=== PATIENT | female | born 1960 | race Caucasian/White ===

== ENCOUNTER 2016-07-28 03:49 | Emergency (ER) | payer SELFPAY ==
--- NOTE | 2016-07-28 04:13 | ED.PDOC ---
History of Present Illness - General Chief Complaint: General Stated Complaint: neuropathy pain Time Seen by Provider: 07/28/16 04:07 Source: patient Exam Limitations: no limitations - History of Present Illness Initial Comments: Ms.Patricia Lawson 56 y/o female with dm2 complicated by neuropthy,SZ,Lumbar disc herniation brought by granddaughter here tonight stating that she had been having stabbing low back pain radiating to back of her legs and pain on both feet for the last one month ran out of medicines since unable to work and disability application still pending.Denies bowel or bladder dysfunction. Timing/Duration: other - one month ago Severity: moderate Improving Factors: nothing Worsening Factors: nothing Associated Symptoms: denies symptoms Allergies/Adverse Reactions: Allergies Guaifenesin [From Entex ER] Allergy (Mild, Verified 10/05/14 12:24) Other itching Methylparaben [From Entex ER] Allergy (Mild, Verified 10/05/14 12:24) Other itching Phenylephrine [From Entex ER] Allergy (Mild, Verified 10/05/14 12:24) Other itching Propylparaben [From Entex ER] Allergy (Mild, Verified 10/05/14 12:24) Other itching Cephalexin [From Keflex] Allergy (Verified 12/10/13 21:34) Home Medications: Ambulatory Orders HYDROcodone 7.5MG/APAP 325MG [[place] 7.5/325] 1 each PO .Q4H PRN #15 tab NS 12/10 Meloxicam [Mobic] 15 mg PO DAILY #15 tab 12/10/13 Clonazepam 1 mg PO BEDTIME 10/05/14 Furosemide [Lasix] 20 mg PO DAILY 10/05/14 Gabapentin 800 mg PO BID 10/05/14 Insulin Detemir [Levemir] 40 unit SUBCU BEDTIME 10/05/14 Muscle Relaxant 1 each PO PRN PRN 10/05/14 Pioglitazone HCl [Actos] 15 mg PO DAILY 10/05/14 Pravastatin Sodium 40 mg PO BEDTIME 10/05/14 Zolpidem Tartrate [Ambien] 10 mg PO BEDTIME 10/05/14 Acetamin W/Cod #3 Tab [Tylenol #3 Tab] 1 ea PO Q6H PRN #12 tab 02/25/15 levoFLOXacin [Levaquin] 500 mg PO DAILY #10 tab 02/25/15 Ciprofloxacin [Cipro] 500 mg PO BID #20 tab 07/28/16 Ciprofloxacin-Ciprofloxacin Hc [Ciprofloxacin ER 500 mg] 1 tab PO BID #20 tab Levetiracetam [Keppra] 500 mg PO BEDTIME #30 tab 07/28/16 Lisinopril 20 mg PO DAILY #30 tab 07/28/16 Phenytoin Sodium Extended 300 mg PO BEDTIME #90 cap 07/28/16 Pravastatin Sodium [Pravachol] 20 mg PO BEDTIME #30 tab 07/28/16 Review of Systems - Review of Systems Constitutional: States: no symptoms reported EENTM: States: no symptoms reported Respiratory: States: see HPI Cardiology: States: no symptoms reported Gastrointestinal/Abdominal: States: no symptoms reported Genitourinary: States: no symptoms reported Musculoskeletal: States: see HPI, back pain Skin: States: no symptoms reported Neurological: States: other - neuropathic pain Endocrine: States: no symptoms reported Hematologic/Lymphatic: States: no symptoms reported Past Medical History (General) - Patient Medical History Hx Seizures: Yes Hx Stroke: No Hx Congestive Heart Failure: No Hx Hypertension: Yes Hx Diabetes: Yes Hx MRSA: No Surgical History: cholecystectomy, other - hysterectomy,,cts,hernia repair,knee - Vaccination History Hx Influenza Vaccination: Yes Hx Pneumococcal Vaccination: No - Social History Hx Tobacco Use: No - quit 2011 Hx Depression: Yes - Female History Patient is a Female of Child Bearing Age (10 -59 yrs old): No Patient : No - Triage Comment ED Triage Comment: past two months having neuropathy pain. Been out of all meds bu levamir and metformin Family Medical History - Family History Mother Hx Family Congestive Heart Failure: Yes Hx Family;Other: COPD Physical Exam - Physical Exam General Appearance: Alert, No apparent distress Eye Exam: bilateral normal, bilateral other - no apparent hemoorhage or exudate retina noted on opht.exam Ears, Nose, Throat: hearing grossly normal, normal ENT inspection Neck: non-tender, full range of motion, supple Respiratory: chest non-tender, lungs clear, normal breath sounds, no respiratory distress Cardiovascular/Chest: normal peripheral pulses, regular rate, rhythm, no gallop , no murmur Peripheral Pulses: radial,right: 2+, radial,left: 2+, dorsalis pedis,right: 1+, dorsalis pedis,left: 1+ Gastrointestinal/Abdominal: normal bowel sounds, non tender, soft Back Exam: normal inspection, no CVA tenderness, no vertebral tenderness Extremity: inflammation - left big toe, pedal edema, swelling Neurologic: alert, normal mood/affect, oriented x 3, sensory deficit - both feet , other - negative straight leg raising test DTR: 1+: Patellar, left, Patellar, right Skin Exam: warm/dry Lymphatic: no adenopathy Departure - Departure Clinical Impression: Lumbar radiculopathy, Neuropathy due to type 2 diabetes mellitus, Cellulitis of toe of left foot Time of Disposition: 04:56 Disposition: Discharge to Home or Self Care Condition: Good Departure Forms: ED Discharge - Pt. Copy, Patient Portal Self Enrollment Instructions: DI for Diabetic Neuropathy, Smoking Cessation for Older Adults: It's Not Too Late!, Reasons to Quit Smoking Diet: low fat, low cholesterol, diabetic diet, low salt diet Referrals: Rey Mesa MD [Primary Care Provider] - 1-2 Weeks Prescriptions: Ciprofloxacin [Cipro] 500 mg PO BID #20 tab Ciprofloxacin-Ciprofloxacin Hc [Ciprofloxacin ER 500 mg] 1 tab PO BID #20 tab Levetiracetam [Keppra] 500 mg PO BEDTIME #30 tab Lisinopril 20 mg PO DAILY #30 tab Phenytoin Sodium Extended 300 mg PO BEDTIME #90 cap Pravastatin Sodium [Pravachol] 20 mg PO BEDTIME #30 tab Home Medications: Ambulatory Orders HYDROcodone 7.5MG/APAP 325MG [[place] 7.5/325] 1 each PO .Q4H PRN #15 tab NS 12/10 Meloxicam [Mobic] 15 mg PO DAILY #15 tab 12/10/13 Clonazepam 1 mg PO BEDTIME 10/05/14 Furosemide [Lasix] 20 mg PO DAILY 10/05/14 Gabapentin 800 mg PO BID 10/05/14 Insulin Detemir [Levemir] 40 unit SUBCU BEDTIME 10/05/14 Muscle Relaxant 1 each PO PRN PRN 10/05/14 Pioglitazone HCl [Actos] 15 mg PO DAILY 10/05/14 Pravastatin Sodium 40 mg PO BEDTIME 10/05/14 Zolpidem Tartrate [Ambien] 10 mg PO BEDTIME 10/05/14 Acetamin W/Cod #3 Tab [Tylenol #3 Tab] 1 ea PO Q6H PRN #12 tab 02/25/15 levoFLOXacin [Levaquin] 500 mg PO DAILY #10 tab 02/25/15 Ciprofloxacin [Cipro] 500 mg PO BID #20 tab 07/28/16 Ciprofloxacin-Ciprofloxacin Hc [Ciprofloxacin ER 500 mg] 1 tab PO BID #20 tab Levetiracetam [Keppra] 500 mg PO BEDTIME #30 tab 07/28/16 Lisinopril 20 mg PO DAILY #30 tab 07/28/16 Phenytoin Sodium Extended 300 mg PO BEDTIME #90 cap 07/28/16 Pravastatin Sodium [Pravachol] 20 mg PO BEDTIME #30 tab 07/28/16 Additional Instructions: NEED TO FOLLOW UP WITH PRIMARY MD;RETURN TO EMERGENCY ROOM NEEDED
[2016-07-28] MEDS ORDERED: HYDROCOD/APAP 10/325 (ER DISP) # 3 tablets PO ONE (04:54)
[2016-07-28] MEDS ORDERED: TETANUS,DIPHTHERIA,PERTUSSIS 1 EA SYG IM ONE (04:54)
[2016-07-28] MEDS ORDERED: levoFLOXacin 500 MG TAB PO ONE (04:55)
[2016-07-28 05:25] VITALS: BP 154/78
[2016-07-28 05:26] VITALS: TEMP 97.9; O2SAT 97
== END 2016-07-28 05:27 | disposition home or self-care (01) ==
LOC: ER 03:49
DX: M54.16 Radiculopathy, lumbar region (principal); E11.40 Type 2 diabetes mellitus with diabetic neuropathy, unspecified; L03.032 Cellulitis of left toe; I10 Essential (primary) hypertension; Z79.899 Other long term (current) drug therapy; Z88.8 Allergy status to other drugs, medicaments and biological substances; Z87.891 Personal history of nicotine dependence; Z23 Encounter for immunization

== ENCOUNTER → 2016-12-16 | Outpatient (CLI) | payer MEDICAID ==
--- NOTE | 2016-12-16 13:46 | US ---
EXAM DESCRIPTION: Venous,Lower Extremity LT CLINICAL HISTORY: 56 years, Female, OTHER SPECIFIED SOFT TISSUE DISORDER COMPARISON: FINDINGS: The left common femoral, superficial femoral, deep femoral, popliteal, posterior tibial and peroneal veins identified. Appropriate flow compressibility and augmentation. IMPRESSION: No evidence deep venous thrombosis left lower extremity. Electronically signed by: Paramjit Bentley MD 12/16/2016 1:44 PM CDT
== END | disposition home or self-care (01) ==
LOC: US 10:36
PROVIDERS: ATTEND Family Medicine
DX: M79.89 Other specified soft tissue disorders (principal)

== ENCOUNTER → 2016-12-16 | Outpatient (CLI) | payer MEDICAID | END | disposition home or self-care (01) | LOC: GMAH 14:16 | PROVIDERS: ATTEND Family Medicine | DX: L03.119 Cellulitis of unspecified part of limb (principal) ==

== ENCOUNTER 2016-12-18 18:30 | Emergency (ER) | payer MEDICAID ==
[2016-12-18 18:47] VITALS: TEMP 97.9; O2SAT 96
--- NOTE | 2016-12-18 18:48 | ED.PDOC ---
History of Present Illness - General Chief Complaint: Skin/Abrasion/Tear Stated Complaint: diabetic wound Time Seen by Provider: 12/18/16 18:38 Source: patient Exam Limitations: no limitations - History of Present Illness Initial Comments: Krupa Lawson 56 y/o female stated that had pain ,swelling ,redness on left big toe for the last 4 days.Had diabetic toe ulcer that had been drained several months ago. Timing/Duration: other - 4 days Severity: moderate Location: extremities - left big toe Improving Factors: rest Worsening Factors: movement Associated Symptoms: other - callus formation Allergies/Adverse Reactions: Allergies Guaifenesin [From Entex ER] Allergy (Mild, Verified 12/18/16 18:47) Other itching Methylparaben [From Entex ER] Allergy (Mild, Verified 12/18/16 18:47) Other itching Phenylephrine [From Entex ER] Allergy (Mild, Verified 12/18/16 18:47) Other itching Propylparaben [From Entex ER] Allergy (Mild, Verified 12/18/16 18:47) Other itching Home Medications: Ambulatory Orders HYDROcodone 7.5MG/APAP 325MG [[place] 7.5/325] 1 each PO .Q4H PRN #15 tab NS 12/10 Meloxicam [Mobic] 15 mg PO DAILY #15 tab 12/10/13 Clonazepam 1 mg PO BEDTIME 10/05/14 Furosemide [Lasix] 20 mg PO DAILY 10/05/14 Gabapentin 800 mg PO BID 10/05/14 Insulin Detemir [Levemir] 40 unit SUBCU BEDTIME 10/05/14 Muscle Relaxant 1 each PO PRN PRN 10/05/14 Pioglitazone HCl [Actos] 15 mg PO DAILY 10/05/14 Pravastatin Sodium 40 mg PO BEDTIME 10/05/14 Zolpidem Tartrate [Ambien] 10 mg PO BEDTIME 10/05/14 Acetamin W/Cod #3 Tab [Tylenol #3 Tab] 1 ea PO Q6H PRN #12 tab 02/25/15 levoFLOXacin [Levaquin] 500 mg PO DAILY #10 tab 02/25/15 Ciprofloxacin [Cipro] 500 mg PO BID #20 tab 07/28/16 Ciprofloxacin-Ciprofloxacin Hc [Ciprofloxacin ER 500 mg] 1 tab PO BID #20 tab Levetiracetam [Keppra] 500 mg PO BEDTIME #30 tab 07/28/16 Lisinopril 20 mg PO DAILY #30 tab 07/28/16 Phenytoin Sodium Extended 300 mg PO BEDTIME #90 cap 07/28/16 Pravastatin Sodium [Pravachol] 20 mg PO BEDTIME #30 tab 07/28/16 Tramadol HCl [Tramadol HCl ER] 100 mg PO TID #20 cap 12/18/16 levoFLOXacin [Levaquin] 500 mg PO QD #10 tab 12/18/16 Review of Systems - Review of Systems Constitutional: States: no symptoms reported EENTM: States: no symptoms reported Respiratory: States: no symptoms reported Cardiology: States: no symptoms reported Genitourinary: States: no symptoms reported Musculoskeletal: States: no symptoms reported Skin: States: see HPI Neurological: States: other - diabetic neuropathy foot Past Medical History (General) - Patient Medical History Hx Seizures: Yes Hx Stroke: No Hx Congestive Heart Failure: No Hx Hypertension: Yes Hx Diabetes: Yes Hx MRSA: No Surgical History: cholecystectomy, other - hysterectomy,cts,knee, - Vaccination History Hx Influenza Vaccination: Yes Hx Pneumococcal Vaccination: Yes - Social History Hx Tobacco Use: No - quit 2011 Hx Depression: Yes - Activities of Daily Living Hospice Agency (if applicable):: None - Female History Patient : No Family Medical History - Family History Mother Hx Family Congestive Heart Failure: Yes Hx Family;Other: COPD Physical Exam - Physical Exam General Appearance: Alert, Comfortable, No apparent distress Eyes, Ears, Nose, Throat Exam: normal ENT inspection Neck: supple Cardiovascular/Chest: normal peripheral pulses, regular rate, rhythm, no murmur Respiratory: lungs clear, normal breath sounds Gastrointestinal/Abdominal: non tender, soft Back Exam: normal inspection Extremity: normal range of motion, non-tender, no calf tenderness, other - tender/redness/swelling left big toe Skin Exam: warm/dry Lymphatic: no adenopathy Progress - Progress Progress: 12/18/16 19:48 Vital Signs - 8 hr 12/18/16 18:38 Temperature 97.9 F Pulse Rate [ 87 pulse ox] Respiratory 18 Rate Blood Pressure 160/95 [Left Arm] O2 Sat by Pulse 96 Oximetry - Results/Orders Results/Orders: Laboratory Tests 12/18/16 12/18/16 19:00 19:00 WBC 10.0 RBC 4.95 Hgb 13.6 Hct 40.7 MCV 82.2 MCH 27.5 MCHC 33.5 RDW 13.3 Plt Count 204 MPV 9.0 Absolute Neuts (auto) 5.60 Absolute Lymphs (auto) 3.40 Absolute Monos (auto) 0.40 Absolute Eos (auto) 0.50 H Absolute Basos (auto) 0.10 Neutrophils % 55.9 Lymphocytes % 33.8 Monocytes % 4.3 Eosinophils % 4.6 Basophils % 1.4 Sodium 134 L Potassium 3.9 Chloride 98 L Carbon Dioxide 26 Anion Gap 13.9 BUN 10 Creatinine 0.53 L BUN/Creatinine Ratio 18.9 Random Glucose 349 H Serum Osmolality 281.2 Calcium 9.4 Total Bilirubin 0.5 AST 21 ALT 21 Alkaline Phosphatase 97 Serum Total Protein 7.4 Albumin 3.9 Globulin 3.5 Albumin/Globulin Ratio 1.1 - EKG/XRAY/CT XRAY: no bony abnormality left big toe,soft tissue swelling Departure - Departure Clinical Impression: Cellulitis of toe of left foot Time of Disposition: 19:50 Disposition: Discharge to Home or Self Care Condition: Fair Departure Forms: ED Discharge - Pt. Copy, Patient Portal Self Enrollment Instructions: DI for Abrasion, DI for Cellulitis -- Adult, Cellulitis Referrals: Rey Mesa MD [Primary Care Provider] - 1-2 Weeks Prescriptions: levoFLOXacin [Levaquin] 500 mg PO QD #10 tab Tramadol HCl [Tramadol HCl ER] 100 mg PO TID #20 cap Home Medications: Ambulatory Orders HYDROcodone 7.5MG/APAP 325MG [[place] 7.5/325] 1 each PO .Q4H PRN #15 tab NS 12/10 Meloxicam [Mobic] 15 mg PO DAILY #15 tab 12/10/13 Clonazepam 1 mg PO BEDTIME 10/05/14 Furosemide [Lasix] 20 mg PO DAILY 10/05/14 Gabapentin 800 mg PO BID 10/05/14 Insulin Detemir [Levemir] 40 unit SUBCU BEDTIME 10/05/14 Muscle Relaxant 1 each PO PRN PRN 10/05/14 Pioglitazone HCl [Actos] 15 mg PO DAILY 10/05/14 Pravastatin Sodium 40 mg PO BEDTIME 10/05/14 Zolpidem Tartrate [Ambien] 10 mg PO BEDTIME 10/05/14 Acetamin W/Cod #3 Tab [Tylenol #3 Tab] 1 ea PO Q6H PRN #12 tab 02/25/15 levoFLOXacin [Levaquin] 500 mg PO DAILY #10 tab 02/25/15 Ciprofloxacin [Cipro] 500 mg PO BID #20 tab 07/28/16 Ciprofloxacin-Ciprofloxacin Hc [Ciprofloxacin ER 500 mg] 1 tab PO BID #20 tab Levetiracetam [Keppra] 500 mg PO BEDTIME #30 tab 07/28/16 Lisinopril 20 mg PO DAILY #30 tab 07/28/16 Phenytoin Sodium Extended 300 mg PO BEDTIME #90 cap 07/28/16 Pravastatin Sodium [Pravachol] 20 mg PO BEDTIME #30 tab 07/28/16 Tramadol HCl [Tramadol HCl ER] 100 mg PO TID #20 cap 12/18/16 levoFLOXacin [Levaquin] 500 mg PO QD #10 tab 12/18/16 Additional Instructions: FOLLOW WITH DRS. DING /SALUD 12/19/2016 patient to call office;Elevate left foot 20 degrees at bedtime;Refrain too much weightbearing left foot
[2016-12-18] MEDS ORDERED: TETANUS,DIPHTHERIA,PERTUSSIS 1 EA SYG IM ONE (18:58)
--- NOTE | 2016-12-18 19:21 | RAD ---
EXAM DESCRIPTION: Foot,Left 3 Views CLINICAL HISTORY: 56 years ,Female pain COMPARISON: None. TECHNIQUE: LEFT foot, Three view FINDINGS: There is soft tissue swelling over the great toe as well as soft tissue swelling over the forefoot. Vascular calcification. Question subcutaneous emphysema or soft tissue defect along the medial aspect of the great toe which could reflect ulceration. Recommend clinical correlation. No underlying bone destruction is noted. No radiopaque foreign object noted. No significant ankle effusion noted. IMPRESSION: Soft tissue swelling over the forefoot and particularly over the great toe with question area of ulceration or laceration along the medial aspect. Recommend clinical correlation No bone destruction noted Electronically signed by: Dolores Gutierres 12/18/2016 7:19 PM CDT
[2016-12-18] MEDS ORDERED: levoFLOXacin 500 MG TAB PO ONE (19:51)
[2016-12-18 20:29] VITALS: BP 168/77
== END 2016-12-18 20:10 | disposition home or self-care (01) ==
LOC: ER 18:30
DX: E11.628 Type 2 diabetes mellitus with other skin complications (principal); L03.032 Cellulitis of left toe; I10 Essential (primary) hypertension; Z23 Encounter for immunization; Z88.8 Allergy status to other drugs, medicaments and biological substances; Z79.899 Other long term (current) drug therapy; Z79.4 Long term (current) use of insulin; Z87.891 Personal history of nicotine dependence

== ENCOUNTER → 2017-01-02 | Outpatient (CLI) | payer MEDICAID ==
--- NOTE | 2017-01-05 11:01 | MRI ---
EXAM DESCRIPTION: MRI left foot CLINICAL HISTORY: Nonhealing wound of the great toe. Entire foot is red and swollen. COMPARISON: Radiograph 12/18/2016 TECHNIQUE: Multiplanar, multisequence MR images of the left foot FINDINGS: Skin thickening with subcutaneous edema great toe. Minimal fluid along the base of the nailbed. No abscess. Marrow edema in the distal phalanx of the great toe consistent with osteomyelitis. No marrow abnormality in the proximal phalanx. No other evidence of osteomyelitis No soft tissue abscess or infectious tenosynovitis. No septic arthritis A well-circumscribed ovoid intermediate signal intensity mass is present beneath the plantar calcaneus/plantar fascia. This measures about 2.2 x 1.7 x 1 cm. Intermediate to low T2 primarily with minimal increased signal. Nonspecific probably represents a chronic adventitial bursa, or possibly epidermal inclusion cyst or foreign body reaction Moderate-sized well-corticated plantar calcaneal spur with marked middle bundle plantar fascial thickening. No acute fascial abnormality No osteochondral lesion of the ankle or hindfoot. No advanced osteoarthritis or neuropathic arthropathy Chronic Achilles tendinosis with distal dorsal calcaneal enthesophyte. No acute abnormality, IMPRESSION: Osteomyelitis distal phalanx great toe. Overlying cellulitis. No soft tissue abscess Electronically signed by: Diogenes Ramesh MD 01/05/2017 11:00 AM CDT
== END ==
LOC: MRI 14:05
PROVIDERS: ATTEND Family Medicine
DX: L97.522 Non-pressure chronic ulcer of other part of left foot with fat layer exposed (principal); M86.172 Other acute osteomyelitis, left ankle and foot; L03.116 Cellulitis of left lower limb; E11.69 Type 2 diabetes mellitus with other specified complication; M79.89 Other specified soft tissue disorders

== ENCOUNTER 2017-01-08 08:00 | Day surgery (SDC) | payer MEDICAID ==
--- NOTE | 2017-01-06 13:07 | RAD ---
EXAM DESCRIPTION: Chest,2 Views CLINICAL HISTORY: pre op COMPARISON: December 10, 2013 FINDINGS: Two-view chest x-ray shows cardiomediastinal silhouette and pulmonary vasculature to be within normal limits. Mild calcifications of the thoracic aortic arch are seen. The lungs are normally aerated and clear. Costophrenic angles are sharp. Moderate disc degenerative changes of the spine are identified. IMPRESSION: No radiographic evidence of acute cardiopulmonary disease. Electronically signed by: Domenic Stapleton MD 01/06/2017 1:06 PM CDT
[~2017-01-08 08:00] MED LIST: LACTATED RINGERS 1,000 ML ONE; LIDOCAINE 1% 10 ML VIAL INJ ONE; PROPOFOL 200 MG/20 ML VIAL IV ONE; SODIUM CHL 0.9% 100ML MINI-BAG 100 ML IVPB ONE; ceFAZolin SODIUM 1 GM VIAL ONE
[2017-01-08] MEDS ORDERED: SODIUM BICARBONATE VIAL 50 MEQ/50 ML VIAL ONE (08:31)
[2017-01-08] MEDS ORDERED: LIDOCAINE 1% 50 ML VIAL INJ ONE (08:31)
--- NOTE | 2017-01-08 11:00 | OP ---
DATE OF PROCEDURE: 01/08/17 PREOPERATIVE DIAGNOSIS: 1. Osteomyelitis, distal phalanx, left great toe, with nonhealing ulceration. POSTOPERATIVE DIAGNOSIS: 1. Osteomyelitis, distal phalanx, left great toe, with nonhealing ulceration. PROCEDURE: 1. Amputation of left great toe through the proximal phalanx. SURGEON: Gio Porras MD. WORKFORCE ADVISOR: None. ANESTHESIA: Local infiltration of 1% lidocaine with bicarb and IV sedation by Anesthesia. INDICATION: The patient is a 56-year-old diabetic who developed an ulceration on the medial aspect of the plantar surface of her left great toe. It had drainage and was treated with antibiotics and improved clinically, but failed to heal. She recently developed some purulent drainage on the medial aspect of her great toenail, which was ingrowing, with surrounding erythema. She underwent removal of the toenail and the drainage at that point improved, however, she continued to have erythema. Dr. Mesa ordered an MRI of her toe and it revealed changes consistent with osteomyelitis in the distal phalanx, and she was brought to the Surgical Suite today for amputation of same. FINDINGS: The amputated distal proximal phalanx looked to be healthy. There was no obvious purulent drainage anywhere within the transected tissue. PROCEDURE: After the patient was brought to the Surgical Suite and received IV Ancef, she was prepped and draped in the usual sterile manner with the left side up mildly with a pillow. Surgical time-out was taken. At this point, an elliptical incision was fashioned to take the nailbed, the erythematous tissue and the ulceration within its margins. It was first made with a marking pen. Infiltration of anesthesia was obtained proximally and then the skin edges were incised with a sharp knife. Skin hooks were used and the tissue was dissected down through the skin into the subcutaneous tissue using electrocautery. We entered the interphalangeal joint and the tissue was transected at that point and the specimen was sent. Using a rongeur, the distal proximal phalange bone was excised until smooth. The wound was then copiously irrigated with saline. The periosteum was then closed with interrupted 3-0 Vicryl sutures and the skin edges were then loosely approximated with 4-0 Nylon vertical mattress sutures. Sterile dressing was applied. The patient tolerated the procedure well. Estimated blood loss was approximately 25 to 50 mL. All sponge, needle and instrument counts were correct. [facility][id number] [facility]
[2017-01-08 12:15] VITALS: O2SAT 99
[2017-01-08 12:16] VITALS: BP 136/78; TEMP 97.2
== END 2017-01-08 11:25 | disposition home or self-care (01) ==
LOC: AMB 08:00
PROVIDERS: ATTEND Surgery
DX: M86.8X7 Other osteomyelitis, ankle and foot (principal); G40.909 Epilepsy, unspecified, not intractable, without status epilepticus; E11.9 Type 2 diabetes mellitus without complications; G89.4 Chronic pain syndrome; F41.8 Other specified anxiety disorders; Z88.8 Allergy status to other drugs, medicaments and biological substances; Z87.891 Personal history of nicotine dependence; Z79.84 Long term (current) use of oral hypoglycemic drugs; Z79.899 Other long term (current) drug therapy
CPT/HCPCS: 01480; 28160; 36416; 71020; 80053; 81001; 82948; 85025; 93005; J0690; J3490; J7050; J7120

== ENCOUNTER 2017-04-27 10:04 | Emergency (ER) | payer SELFPAY ==
[2017-04-27 10:29] VITALS: TEMP 99.5
[2017-04-27] MEDS ORDERED: SULFA/TRIMETH 800/160 (DS) TAB 1 EA TAB PO ONE (11:30)
[2017-04-27] MEDS ORDERED: INSULIN LISPRO 100 UNITS/ML PEN SUBCU ONE (11:36)
[2017-04-27] MEDS ORDERED: VANCOMYCIN HCL INJ 2,000 MG in SODIUM CHLORIDE 0.9% 500ML 500 ML IVPB ONE (11:39)
[2017-04-27] MEDS ORDERED: INSULIN, REG.(HUMAN) 100 U/ML VIAL ONE (11:39)
[2017-04-27] MEDS ORDERED: INSULIN, REG.(HUMAN) 100 U/ML VIAL SUBCU ONE (11:42)
[2017-04-27] MEDS ORDERED: VANCOMYCIN HCL INJ 1,000 MG VIAL IVPB ONE (11:44)
[2017-04-27] MEDS ORDERED: SODIUM CHLORIDE 0.9% 500ML 500 ML ONE (11:45)
[2017-04-27] MEDS: CIPROFLOXACIN 500 MG TAB PO ONE ×2 (11:58→11:59)
--- NOTE | 2017-04-27 12:15 | RAD ---
EXAM DESCRIPTION: Foot,Left 2 Views CLINICAL HISTORY: cellulitis bilat, dm COMPARISON: December 18, 2016 IMPRESSION: 2 views of the left foot show interval amputation of the distal phalanx and distal portion of the proximal phalanx of the great toe. No obvious periosteal reaction is seen involving the residual stump. Question soft tissue ulceration or lucency on the medial and lateral aspect of the stump. No acute fracture, focal bone destruction, or joint dislocation in the foot is seen. Moderate vascular calcifications are seen. Mild osteoarthritic changes of the midfoot tarsal bones are seen. Soft tissue swelling of the distal foot is seen. Electronically signed by: Domenic Stapleton MD 04/27/2017 12:14 PM [facility]
--- NOTE | 2017-04-27 12:17 | RAD ---
EXAM DESCRIPTION: Foot,Right 2 Views CLINICAL HISTORY: cellulitis bilat, dm COMPARISON: None. IMPRESSION: 2 views of the right foot shows no evidence of acute fracture, focal bone destruction, or joint dislocation. There is a linear radiopaque foreign body in the soft tissue plantar to the first metatarsal head with tiny radiopaque foreign body more distal and medially. This could represent fragments from a needle. Diffuse soft tissue swelling of the foot is seen. Moderate vascular calcifications are identified. Large plantar enthesophyte of the calcaneus is seen. Electronically signed by: Domenic Stapleton MD 04/27/2017 12:16 PM [facility]
--- NOTE | 2017-04-27 14:36 | ED.PDOC ---
History of Present Illness - General Chief Complaint: Skin/Abrasion/Tear Time Seen by Provider: 04/27/17 10:22 Source: patient Exam Limitations: no limitations - History of Present Illness Initial Comments: -year-old female with diabetes presenting secondary to cellulitis and some swelling in both feet. Swelling has been present for 4-5 days. The patient did pull a foreign body out of the first digit of her's right foot a few days ago. She does have some erythema extending out from the right first toe dorsally. There is no drainage or ashley pus. Additionally the patient does have a very small amount of pus coming from just below the cuticle on the second digit of the left toe. This looks like this probably came from wearing a shoe that was too small. Additionally she does have a callus to the plantar aspect of the first digit of the left foot that has caused a new ulcer to form. No fevers. No nausea vomiting or diarrhea. No evidence of sepsis.she has not been checking her blood pressures or blood sugars frequently Timing/Duration: unsure Severity: moderate Improving Factors: nothing Worsening Factors: nothing Associated Symptoms: denies symptoms Allergies/Adverse Reactions: Allergies Guaifenesin [From [facility]] Allergy (Mild, Verified 12/18/16 18:47) Other itching Methylparaben [From [facility]] Allergy (Mild, Verified 12/18/16 18:47) Other itching Phenylephrine [From [facility]] Allergy (Mild, Verified 12/18/16 18:47) Other itching Propylparaben [From [facility]] Allergy (Mild, Verified 12/18/16 18:47) Other itching Home Medications: Ambulatory Orders Insulin Detemir [Levemir] 50 unit SUBCU BEDTIME 10/05/14 Phenytoin Sodium Extended 300 mg PO BEDTIME #90 cap 07/28/16 Estazolam 1 mg PO BEDTIME 01/06/17 HYDROcodone 10MG/APAP 325MG 1 tablet PO Q4HR PRN 01/06/17 Methocarbamol [Robaxin] 750 mg PO QID 01/06/17 Sertraline HCl 100 mg PO BEDTIME 01/06/17 levoFLOXacin [Levaquin] 500 mg PO QPM 01/06/17 Ciprofloxacin [Cipro] 500 mg PO BID #20 tab 04/27/17 Sulfa/Trimeth 800/160 (Ds) Tab [Bactrim DS Tab] 1 ea PO BID #20 tab 04/27/17 Review of Systems - Review of Systems Constitutional: States: no symptoms reported EENTM: States: no symptoms reported Respiratory: States: no symptoms reported Cardiology: States: no symptoms reported Gastrointestinal/Abdominal: States: no symptoms reported Genitourinary: States: no symptoms reported Musculoskeletal: States: see HPI Skin: States: see HPI Neurological: States: see HPI Endocrine: States: no symptoms reported All other Systems: No Change from Baseline Past Medical History (General) - Patient Medical History Hx Seizures: No Hx Stroke: No Hx Cardiac Disorders: No Hx Congestive Heart Failure: No Hx Hypertension: Yes Hx Diabetes: Yes Hx MRSA: No - Vaccination History Hx Influenza Vaccination: Yes Hx Pneumococcal Vaccination: Yes - Social History Hx Tobacco Use: No - quit 2011 Hx Depression: Yes - Female History Patient : No Family Medical History - Family History Mother Hx Family Congestive Heart Failure: Yes Hx Family;Other: COPD Physical Exam - Physical Exam General Appearance: Alert, Comfortable, No apparent distress Eye Exam: bilateral normal Ears, Nose, Throat: hearing grossly normal, normal ENT inspection, normal pharynx Neck: full range of motion, supple Respiratory: lungs clear, normal breath sounds, no respiratory distress, no accessory muscle use Cardiovascular/Chest: normal peripheral pulses, regular rate, rhythm, no edema Peripheral Pulses: radial,right: 2+, radial,left: 2+, dorsalis pedis,right: 2+, dorsalis pedis,left: 2+ Gastrointestinal/Abdominal: non tender, soft Rectal Exam: deferred Back Exam: no CVA tenderness 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 Progress - Progress Progress: 04/27/17 14:36 the patient is a 57-year-old female presenting to the emergency room secondary to cellulitis present in both feet likely from lesions in the toes. The wounds were cleaned. There was no isolated pus that could be cultured. A blood culture was taken. A scalpel was used to debride the overlying callus on the first digit ulcer on the left foot. The patient was given 1 dose of IV vancomycin here. She will be placed on Bactrim twice daily and ciprofloxacin twice daily for the next 10 days. She needs to follow up with her general surgeon in 3 days for reevaluation. She has been encouraged to photo document her wounds. She can cover the wounds with antibacterial ointment such as Neosporin and a Band-Aid and wash them 2-3 times daily with an antibacterial soap and water. ER warnings were given for any worsening. No evidence of sepsis at this time. - Results/Orders Results/Orders: Laboratory Tests 04/27/17 04/27/17 04/27/17 10:22 10:22 10:22 WBC 11.1 H RBC 4.54 Hgb 12.6 Hct 38.5 MCV 84.9 MCH 27.8 MCHC 32.8 L RDW 13.6 Plt Count 189 MPV 9.7 Absolute Neuts (auto) 8.60 H Absolute Lymphs (auto) 1.60 Absolute Monos (auto) 0.60 Absolute Eos (auto) 0.20 Absolute Basos (auto) 0.10 Neutrophils % 77.2 Lymphocytes % 14.7 L Monocytes % 5.0 Eosinophils % 2.1 Basophils % 1.0 ESR 35 H Sodium 132 L Potassium 4.0 Chloride 96 L Carbon Dioxide 24 Anion Gap 16.0 BUN 12 Creatinine 0.56 L BUN/Creatinine Ratio 21.4 H POC Glucose Random Glucose 523 H* Serum Osmolality 287.1 Calcium 8.9 Total Bilirubin 0.6 AST 14 ALT 15 Alkaline Phosphatase 85 C-Reactive Protein 16.2 H* Serum Total Protein 7.5 Albumin 3.6 Globulin 3.9 H Albumin/Globulin Ratio 0.9 L 04/27/17 14:34 WBC RBC Hgb Hct MCV MCH MCHC RDW Plt Count MPV Absolute Neuts (auto) Absolute Lymphs (auto) Absolute Monos (auto) Absolute Eos (auto) Absolute Basos (auto) Neutrophils % Lymphocytes % Monocytes % Eosinophils % Basophils % ESR Sodium Potassium Chloride Carbon Dioxide Anion Gap BUN Creatinine BUN/Creatinine Ratio POC Glucose 326 H Random Glucose Serum Osmolality Calcium Total Bilirubin AST ALT Alkaline Phosphatase C-Reactive Protein Serum Total Protein Albumin Globulin Albumin/Globulin Ratio Departure - Departure Clinical Impression: Cellulitis of foot, right Diabetic ulcer of foot associated with diabetes mellitus due to underlying condition, limited to breakdown of skin Qualifiers: Diabetic foot ulcer location: toe Laterality: left Qualified Code(s): E08.621 - Diabetes mellitus due to underlying condition with foot ulcer; L97.521 - Non- pressure chronic ulcer of other part of left foot limited to breakdown of skin Disposition: Discharge to Home or Self Care Condition: Fair Departure Forms: ED Discharge - Pt. Copy, Patient Portal Self Enrollment Diet: diabetic diet Activity: increase activity as tolerated Referrals: Rey Mesa MD [Primary Care Provider] - 1-5 Days Prescriptions: Ciprofloxacin [Cipro] 500 mg PO BID #20 tab Sulfa/Trimeth 800/160 (Ds) Tab [Bactrim DS Tab] 1 ea PO BID #20 tab Home Medications: Ambulatory Orders Insulin Detemir [Levemir] 50 unit SUBCU BEDTIME 10/05/14 Phenytoin Sodium Extended 300 mg PO BEDTIME #90 cap 07/28/16 Estazolam 1 mg PO BEDTIME 01/06/17 HYDROcodone 10MG/APAP 325MG 1 tablet PO Q4HR PRN 01/06/17 Methocarbamol [Robaxin] 750 mg PO QID 01/06/17 Sertraline HCl 100 mg PO BEDTIME 01/06/17 levoFLOXacin [Levaquin] 500 mg PO QPM 01/06/17 Ciprofloxacin [Cipro] 500 mg PO BID #20 tab 04/27/17 Sulfa/Trimeth 800/160 (Ds) Tab [Bactrim DS Tab] 1 ea PO BID #20 tab 04/27/17 Additional Instructions: the patient is a 57-year-old female presenting to the emergency room secondary to cellulitis present in both feet likely from lesions in the toes. The wounds were cleaned. There was no isolated pus that could be cultured. A blood culture was taken. A scalpel was used to debride the overlying callus on the first digit ulcer on the left foot. The patient was given 1 dose of IV vancomycin here. She will be placed on Bactrim twice daily and ciprofloxacin twice daily for the next 10 days. She needs to follow up with her general surgeon in 3 days for reevaluation. She has been encouraged to photo document her wounds. She can cover the wounds with antibacterial ointment such as Neosporin and a Band-Aid and wash them 2-3 times daily with an antibacterial soap and water. ER warnings were given for any worsening. No evidence of sepsis at this time. the patient does need to obtain significantly better blood sugar controlin the near future to aid in healing.
[2017-04-27 14:40] VITALS: BP 124/70; O2SAT 98
== END 2017-04-27 14:53 | disposition home or self-care (01) ==
LOC: ER 10:04
DX: E11.621 Type 2 diabetes mellitus with foot ulcer (principal); L97.521 Non-pressure chronic ulcer of other part of left foot limited to breakdown of skin; L03.116 Cellulitis of left lower limb; L03.115 Cellulitis of right lower limb; L84 Corns and callosities; I10 Essential (primary) hypertension; Z79.4 Long term (current) use of insulin
CPT/HCPCS: 36415; 73620; 80053; 82948; 85025; 85651; 86140; 87040; J3370; J7040

== ENCOUNTER → 2017-04-30 | Outpatient (CLI) | payer SELFPAY | END | disposition home or self-care (01) | LOC: LAB.O 15:24 | PROVIDERS: ATTEND Surgery | DX: L02.611 Cutaneous abscess of right foot (principal) ==

== ENCOUNTER 2017-05-01 11:25 | Inpatient (IN) | payer SELFPAY ==
--- NOTE | 2017-05-01 11:38 | HP ---
SUPERVISING PHYSICIAN: Calvin Bird M.D. CHIEF COMPLAINT: Right foot pain. HISTORY OF PRESENT ILLNESS: This is a 57 year-old female patient who was seen in Dr. Porras's office yesterday due to a sore on her right great toe. She had actually been seen in the Emergency Room on the 15 of this month due to the same problem and she was given Levaquin and Cipro at that time. The injury occurred approximately 1 week ago when she broke something on her stove at home. She was in socks and there was some metal on the floor and she stepped in it, and due to her diabetic neuropathy was unable to feel anything in her foot. She initially thought there was something in it, but she cleaned it and put some sort of antibiotic ointment on. The next day when she removed the dressing she thought that any residual metal was gone. The wound progressively worsened which brought her to Dr. Porras's office yesterday. In his office, he opened the wound up and cleaned it out. He sent it for culture and this morning the wound was not any better in spite of her antibiotics, so he called me for direct admission to the hospital for cellulitis of the right great toe. PAST MEDICAL HISTORY: 1. Diabetes mellitus type 2 on insulin therapy. 2. Seizure disorder. 3. Diabetic neuropathy. PAST SURGICAL HISTORY: 1. section. 2. Hysterectomy. 3. Removal of a ganglion cyst. 4. Heel spur removal. 5. Cholecystectomy. 6. Hernia surgery. 7. Left knee surgery. 8. Thumb surgery times 2. 9. Left partial great toe amputation. 10. Tonsillectomy. OUTPATIENT MEDICATIONS: 1. Estazolam. 2. Gabapentin. 3. Hydrocodone. 4. Levemir insulin. 5. Robaxin. 6. Phenytoin. 7. Zoloft. ALLERGIES: NO KNOWN DRUG ALLERGIES. SOCIAL HISTORY: She is disabled. She lives in [place]. She quit smoking approximately 1 year ago and she had a 30 plus pack year smoking history. She drinks alcohol on a social basis. She denies any illicit drug use. REVIEW OF SYSTEMS: Ten point review of systems is negative except as per History of Present Illness. PHYSICAL EXAMINATION: VITAL SIGNS: Temperature 98.3, pulse rate 74, blood pressure 124/70, respiratory rate 16, O2 sat is 97% on room air. GENERAL: This is a 57 year-old female patient who is sitting up in her hospital bed. She is in no acute distress. HEENT: Normocephalic and atraumatic. Pupils are equal and reactive. Oropharynx is clear. Oral mucous membranes are moist. NECK: Supple without mass. There is no discernible jugular venous distention. RESPIRATORY: Clear to auscultation bilaterally. CHEST: There is equal rise and fall of the chest with inspiration and expiration. CARDIOVASCULAR: Regular rate and rhythm. GASTROINTESTINAL: Abdomen is soft, nondistended, non-tender. Bowel sounds are positive. EXTREMITIES: Bilateral pedal pulses are palpable at +2. There is no swelling to the left lower extremity. There is +1 edema to the right lower extremity. The distal portion of the foot is erythematous with some mild edema. There are several lesions on the plantar surface of the right great toe that have wounds with no drainage at this time. There is an area that looks to have been opened recently and presently there is no drainage. There is also an area on the medial aspect of her right great toe that has some fluctuance. It is very tender to palpation. NEUROLOGIC: She is awake, alert and oriented times three. LABORATORY: WBCs are 10.3, hemoglobin 11.8, hematocrit 35.1. ESR is 75. Chemistries show sodium 135, potassium 4.1, chloride 99, BUN 13, creatinine 0.58 , glucose 311, magnesium 1.7. Alkaline phosphatase is 123, C reactive protein 9.9. Urinalysis shows urine glucose of 500 with a trace of lysed urine blood, otherwise is within normal limits. Preliminary wound culture from yesterday shows gram positive cocci. Preliminary blood cultures show no growth. RADIOLOGY: Her foot x-ray per radiology interpretation shows metallic foreign bodies within the plantar aspect of the forefoot. All other labs and films have been reviewed via the EMR. ASSESSMENT: 1. Cellulitis of the right great toe complicated by metal imbedded in the foot. 2. Diabetes mellitus type 2. 3. Seizure disorder. 4. Diabetic neuropathy. PLAN: We will admit the patient to the hospital. I have spoken to Dr. Porras and he has seen the patient. We will make her NPO overnight as he will most likely remove the metal from her foot tomorrow. Initial wound cultures were showing Strep A and I spoke with Dr. Vogt, Infectious Diseases. She recommended that we start Zosyn and after treatment if the cultures show MRSA at that point we could start vancomycin. I have also ordered routine lab for in the morning, sliding scale insulin with a.c. and h.s. blood sugar checks. I have restarted her home medications. I have ordered wound care as well as elevation of her foot. We will continue to monitor closely and followup as needed. Dr. Bird is the collaborating physician available for consultation. #[id number] [facility]
[2017-05-01] MEDS ORDERED: HYDROcodone 5MG/APAP 325MG 1 EA TAB PO PRN (11:45)
[2017-05-01] MEDS ORDERED: PANTOPRAZOLE SODIUM IV 40 MG VIAL IV SCH (12:00)
--- NOTE | 2017-05-01 12:26 | RAD ---
EXAM DESCRIPTION: Foot,Right 3 Views CLINICAL HISTORY: cellulitis COMPARISON: None FINDINGS: 3 views of the right foot. Linear metallic foreign body is present within the plantar aspect of the forefoot soft tissues measuring 0.5 cm in length. This is immediately deep to the head of the first metatarsal and is perpendicular to the long axis of the skin. More medial also within the plantar soft tissues is a small radiopaque foreign body. This foreign body is also linear in appearance measuring 0.25 cm and projects medial to the proximal head of the first digit proximal phalanx. Diffuse soft tissue swelling about the forefoot is consistent with cellulitis. No erosions are seen to suggest a subacute or chronic osteomyelitis. No acute fractures are demonstrated. Plantar and posterior calcaneal enthesophytes are noted without periosteal reaction. Fine vascular calcifications commonly associated with metabolic disease. Impression: Metallic foreign bodies within the plantar aspect of the forefoot described above. Associated cellulitis. Electronically signed by: Zohaib Barrientos MD 05/01/2017 12:25 PM [facility]
[2017-05-01] MEDS: IV SET AND CAP CHANGE INJ INJ SCH (13:32)
[2017-05-01] MEDS: ENOXAPARIN SODIUM 40 MG/0.4 ML SYG SUBCU SCH (13:35)
[2017-05-01] MEDS: SODIUM CHLORIDE 0.9% (FLUSH) 10 ML SYG IV PRN ×2 (13:37→16:56)
[2017-05-01] MEDS ORDERED: DEXTROSE 50% 25 GM/50 ML SYG IV PRN (14:00)
[2017-05-01] MEDS ORDERED: GLUCAGON INJ 1 MG VIAL SUBCU PRN (14:00)
[2017-05-01] MEDS ORDERED: PIPERACILLIN/TAZOBACTAM 3.375 GM VIAL IVPB ONE ×2 (14:12→20:02)
[2017-05-01] MEDS ORDERED: SODIUM CHL 0.9% 50ML MIN-BAG+ 50 ML IVPB ONE (14:13)
[2017-05-01] MEDS: PIPERACILLIN/TAZOBACTAM 3.375 GM in SODIUM CHLORIDE 0.9% 100ML 100 ML IVPB SCH ×2 (14:23→20:29)
[2017-05-01] MEDS ORDERED: MAGNESIUM SULFATE PREMIX 2GM 2 GM in PREMIX BAG 1 BAG IVPB ONE (15:00)
[2017-05-01] MEDS ORDERED: MAGNESIUM SULFATE PREMIX 2GM 50 ML IVPB ONE (15:15)
[2017-05-01] MEDS: GABAPENTIN 400 MG CAP PO SCH ×2 (15:18→20:32)
[2017-05-01] MEDS: HYDROcodone 10MG/APAP 325MG 1 EA TAB PO PRN ×2 (15:18→20:31)
[2017-05-01] MEDS: INSULIN LISPRO 100 UNITS/ML PEN SUBCU SCH ×2 (16:51→21:30)
[2017-05-01] MEDS: METHOCARBAMOL 750 MG TAB PO SCH ×2 (16:55→20:30)
[2017-05-01] MEDS ORDERED: SODIUM CHLORIDE 0.9% 100ML 100 ML IVPB ONE (20:03)
[2017-05-01] MEDS: SODIUM CHLORIDE 0.9% (FLUSH) 10 ML SYG IV SCH (20:28)
[2017-05-01] MEDS: KCL 20 MEQ/NS 1,000 ML IVS PRN (20:28)
[2017-05-01] MEDS: PHENYTOIN SODIUM CAP EXTENDED 100 MG CAP PO SCH (20:30)
[2017-05-01] MEDS: SERTRALINE HCL 50 MG TAB PO SCH (20:32)
[2017-05-01] MEDS ORDERED: ESTAZOLAM 1 MG PO SCH (21:00)
[2017-05-01] MEDS: INSULIN DETEMIR 100 UNITS/ML PEN SUBCU SCH (21:30)
[2017-05-01] MEDS ORDERED: TEMAZEPAM 15 MG CAP ONE (22:47)
[2017-05-01] MEDS: TEMAZEPAM 15 MG CAP PO PRN (22:56)
[2017-05-02] MEDS ORDERED: SODIUM CHLORIDE 0.9% 100ML 100 ML IVPB ONE ×4 (02:17→19:55)
[2017-05-02] MEDS ORDERED: PIPERACILLIN/TAZOBACTAM 3.375 GM VIAL IVPB ONE ×4 (02:17→19:54)
[2017-05-02] MEDS: PIPERACILLIN/TAZOBACTAM 3.375 GM in SODIUM CHLORIDE 0.9% 100ML 100 ML IVPB SCH ×4 (02:29→20:30)
[2017-05-02] MEDS: HYDROcodone 10MG/APAP 325MG 1 EA TAB PO PRN ×4 (03:12→21:14)
[2017-05-02] MEDS: PANTOPRAZOLE SODIUM TAB 40 MG PO SCH (06:47)
[2017-05-02] MEDS: INSULIN LISPRO 100 UNITS/ML PEN SUBCU SCH ×4 (07:26→21:13)
[2017-05-02] MEDS: ENOXAPARIN SODIUM 40 MG/0.4 ML SYG SUBCU SCH (08:10)
[2017-05-02] MEDS: SODIUM CHLORIDE 0.9% (FLUSH) 10 ML SYG IV SCH ×2 (08:10→20:30)
[2017-05-02] MEDS: GABAPENTIN 400 MG CAP PO SCH ×3 (08:10→21:10)
[2017-05-02] MEDS: METHOCARBAMOL 750 MG TAB PO SCH ×4 (08:10→21:13)
[2017-05-02] MEDS: KCL 20 MEQ/NS 1,000 ML IVS PRN ×2 (08:15→21:20)
--- NOTE | 2017-05-02 20:16 | PN ---
DATE: 05/02/17 SUPERVISING PHYSICIAN: Calvin Bird M.D. SUBJECTIVE: The patient is resting in bed with the foot elevated. She says it looks much better than when she came in. She is not having any shortness of breath. She remains afebrile. OBJECTIVE: VITAL SIGNS: temperature 97.8, pulse 69, blood pressure 123/73, respirations 18, satting 97% on room air. I's and O's have not been well monitored but she has adequate input. She has had multiple voids that have been measured. Weight 96.9 kg. CHEST: Lungs are clear to auscultation bilaterally. HEART: Regular rate and rhythm. ABDOMEN: Obese but soft, non- tender. Positive bowel sounds. EXTREMITIES: Right lower extremity has just a trace of edema this morning with some areas of erythema on the distal great toe with some areas of whitish discoloration on the dorsal aspect with some fluctuation. It is tender on palpation. NEUROLOGIC: She is alert and oriented times three. LABORATORY: White count 8,500, hemoglobin 11.0, hematocrit 33.2, platelet count is within normal limits at 219,000. Differential shows to be without a left shift. Chemistries show normal electrolytes. Glucoses have been 162 to 266, calcium 8.4, magnesium 1.9. Urine yesterday showed 500 glucose, trace lysed blood, otherwise within normal limits. MICROBIOLOGY: Blood cultures remain negative after 24 hours. RADIOLOGY: There are no additional radiographic studies. ASSESSMENT: 1. Cellulitis of the right great toe complicated by metal foreign body imbedded into the plantar aspect of the foot showing good response with initiation of antibiotics to include Zosyn. 2. Diabetes mellitus type 2. 3. Seizure disorder. 4. Diabetic neuropathy. PLAN: Will continue to follow the patient along with Dr. Porras as he is managing the wound and surgical intervention as needed. She will be allowed to eat today as we await final cultures results which continue to show possibly Strep A. She will remain on Zosyn with anticipation of discharging once showing to be clinically stable depending on what Dr. Porras has to say and the possibility of having to remove additional foreign bodies. At this point though she shows good response. Will watch and wait to see what she does with antibiotics. Her laboratories have been normal both CBC and chemistries, therefore we will plan not to repeat any labs in the morning. Until discharge, will continue to monitor and treat appropriately. #[id number] [facility]
[2017-05-02] MEDS: PHENYTOIN SODIUM CAP EXTENDED 100 MG CAP PO SCH (21:11)
[2017-05-02] MEDS: INSULIN DETEMIR 100 UNITS/ML PEN SUBCU SCH (21:13)
[2017-05-02] MEDS: SERTRALINE HCL 50 MG TAB PO SCH (21:13)
[2017-05-02] MEDS: TEMAZEPAM 15 MG CAP PO PRN (21:14)
[2017-05-03] MEDS ORDERED: PIPERACILLIN/TAZOBACTAM 3.375 GM VIAL IVPB ONE ×4 (00:22→19:55)
[2017-05-03] MEDS ORDERED: SODIUM CHLORIDE 0.9% 100ML 100 ML IVPB ONE ×4 (00:22→19:56)
[2017-05-03] MEDS: PIPERACILLIN/TAZOBACTAM 3.375 GM in SODIUM CHLORIDE 0.9% 100ML 100 ML IVPB SCH ×4 (02:02→20:20)
[2017-05-03] MEDS: HYDROcodone 10MG/APAP 325MG 1 EA TAB PO PRN ×4 (02:17→22:27)
[2017-05-03] MEDS: PANTOPRAZOLE SODIUM TAB 40 MG PO SCH (06:34)
[2017-05-03] MEDS: INSULIN LISPRO 100 UNITS/ML PEN SUBCU SCH ×4 (07:44→21:25)
[2017-05-03] MEDS ORDERED: CHLORHEXIDINE GLUCONATE 4 % 15 ML UD TOP ONE (08:00)
[2017-05-03] MEDS: KCL 20 MEQ/NS 1,000 ML IVS PRN ×2 (08:03→23:03)
[2017-05-03] MEDS: GABAPENTIN 400 MG CAP PO SCH ×4 (08:09→20:44)
[2017-05-03] MEDS: ENOXAPARIN SODIUM 40 MG/0.4 ML SYG SUBCU SCH (08:09)
[2017-05-03] MEDS: SODIUM CHLORIDE 0.9% (FLUSH) 10 ML SYG IV SCH ×2 (08:10→21:27)
[2017-05-03] MEDS: METHOCARBAMOL 750 MG TAB PO SCH ×4 (08:10→20:44)
[2017-05-03] MEDS: CHLORHEXIDINE GLUC 4% 15ML 45 ML, WATER FOR IRRIGATION 1,000 ML TOP SCH ×2 (13:43)
--- NOTE | 2017-05-03 20:09 | PN ---
DATE: 05/03/17 SUPERVISING PHYSICIAN: Calvin Bird M.D. SUBJECTIVE: The patient is doing well, resting in bed, keeping her foot elevated. She has not had any shortness of breath, chest pains, nausea, vomiting or diarrhea. She is requesting to be able to ambulate as she is tired of being in her room. I discussed the possibility once she is seen in clinic by Dr. Porras. She does remain afebrile. OBJECTIVE: VITAL SIGNS: Temperature 98.5, pulse 73, blood pressure 133/73, respirations 16, satting 97% on room air. I's and O's show a positive balance of 2460 with 3310 in, 850 out. She has had a couple of bowel movements. Weight is 98.1 kg. CHEST: Lungs are clear to auscultation bilaterally. HEART: Regular rate and rhythm. ABDOMEN: Obese but soft, non-tender. Positive bowel sounds. EXTREMITIES: Left extremity shows no cyanosis, clubbing or edema. The right foot shows again erythema but much improved from previous days with now just a trace of edema. The great toe has a blister on the far distal end which has been removed by Dr. Porras with no obvious drainage. There are no other areas of consolidation or fluctuation at this point. He does remain tender to palpation. NEUROLOGIC: She is alert and oriented times three. LABORATORY: No repeated laboratories as her laboratories within the last several days have been within normal limits. Blood sugars were the only labs recorded and they have been ranging from 146 to 244. MICROBIOLOGY: Final culture on the wound of the great toe showed Strep agalactiae Group B which showed resistance to only Clindamycin but sensitive to Levofloxacin, moxifloxacin, Zyvox, Benzylpenicillins and tigecycline. Her blood cultures remain negative after 48 hours. Her first set of blood cultures on the 15 remained negative after 5 days. RADIOLOGY: No additional radiographic studies. ASSESSMENT: 1. Cellulitis of the right great toe complicated by metal foreign body imbedded into the plantar aspect of the foot showing good response with initiation of antibiotics to include Zosyn with final culture results showing Group B Strep. 2. Diabetes mellitus type 2 well controlled on insulin. 3. Seizure disorder. No recent seizure activity. 4. Diabetic neuropathy. PLAN: Will continue to follow the patient as she progresses along with her wound care under the guidance of Dr. Porras. She continues with [facility] wound care management and sterile dressings. She is again encouraged to keep her leg elevated when she is either sitting in a chair or in bed to help prevent any further edema. Hopefully she can be discharged within the next 24 to 48 hours to continue with antibiotics as appropriate such as maybe Augmentin once discharged. Will continue to monitor the patient closely until discharge. [facility][id number] [facility]
[2017-05-03] MEDS: PHENYTOIN SODIUM CAP EXTENDED 100 MG CAP PO SCH (20:44)
[2017-05-03] MEDS: SERTRALINE HCL 50 MG TAB PO SCH (20:44)
[2017-05-03] MEDS: TEMAZEPAM 15 MG CAP PO PRN (20:44)
[2017-05-03] MEDS: INSULIN DETEMIR 100 UNITS/ML PEN SUBCU SCH (21:25)
[2017-05-04] MEDS ORDERED: PIPERACILLIN/TAZOBACTAM 3.375 GM VIAL IVPB ONE ×4 (00:04→20:27)
[2017-05-04] MEDS ORDERED: SODIUM CHLORIDE 0.9% 100ML 100 ML IVPB ONE ×4 (00:04→20:28)
[2017-05-04] MEDS: PIPERACILLIN/TAZOBACTAM 3.375 GM in SODIUM CHLORIDE 0.9% 100ML 100 ML IVPB SCH ×4 (02:19→21:09)
[2017-05-04] MEDS: HYDROcodone 10MG/APAP 325MG 1 EA TAB PO PRN ×3 (05:43→21:13)
[2017-05-04] MEDS: PANTOPRAZOLE SODIUM TAB 40 MG PO SCH (06:24)
[2017-05-04] MEDS: INSULIN LISPRO 100 UNITS/ML PEN SUBCU SCH ×4 (07:56→21:16)
[2017-05-04] MEDS: CHLORHEXIDINE GLUC 4% 15ML 45 ML, WATER FOR IRRIGATION 1,000 ML TOP SCH ×2 (09:27)
[2017-05-04] MEDS: GABAPENTIN 400 MG CAP PO SCH ×3 (09:27→21:14)
[2017-05-04] MEDS: ENOXAPARIN SODIUM 40 MG/0.4 ML SYG SUBCU SCH (09:27)
[2017-05-04] MEDS: METHOCARBAMOL 750 MG TAB PO SCH ×4 (09:27→21:14)
[2017-05-04] MEDS: SODIUM CHLORIDE 0.9% (FLUSH) 10 ML SYG IV SCH ×2 (09:27→21:15)
[2017-05-04] MEDS: KCL 20 MEQ/NS 1,000 ML IVS PRN (11:36)
[2017-05-04] MEDS: IV SET AND CAP CHANGE INJ INJ SCH (13:43)
--- NOTE | 2017-05-04 20:53 | PN ---
DATE: 05/04/17 SUPERVISING PHYSICIAN: Diogenes Cantrell M.D. SUBJECTIVE: The patient continues to do well. Dr. Porras removed some skin and the foot looks good this morning with much less erythema and swelling. She has actually been up at times in a wheelchair but keeps the leg elevated as much as possible. She has remained afebrile. OBJECTIVE: VITAL SIGNS: Temperature 98.2, pulse 73, blood pressure 148/72, respirations 19, satting 96% on room air. I's and O's are well measured as she has had multiple voids that were not collected. She has had 1 bowel movement today. Weight is 97.34 kg. CHEST: Lungs are clear to auscultation. HEART: Regular rate and rhythm. ABDOMEN: Obese but soft, non-tender. Positive bowel sounds. EXTREMITIES: Right foot shows continued erythema but only a trace of edema with the biggest involvement of the great toe with some areas of redness from recent debridement showing good response and healing with no obvious area of loculation. NEUROLOGIC: She is alert and oriented times three. LABORATORY: Her blood sugars have been well controlled between 185 and 228. No additional studies were completed as her last labs are all within fairly normal limits. MICROBIOLOGY: Her blood cultures remain negative at 3 days and the final culture from the clinic did show Group B Strep. RADIOLOGY: There are no additional radiographic studies. ASSESSMENT: 1. Cellulitis of the right great toe possibly complicated by metal foreign body imbedded into the plantar aspect of the foot although showing good response with initiation of antibiotics to include Zosyn with final culture results showing Group B Strep. 2. Diabetes mellitus type 2 well controlled on insulin. 3. Seizure disorder with no recent seizure activity. 4. Diabetic neuropathy. PLAN: Will continue to follow the case along with Dr. Porras in regards to wound management which we will defer to his guidance. She has been up to a shower and continues with [facility] wound management. Will continue to encourage her to elevate her leg when in a sitting or laying position. Hopefully be able to discharge in the next 24 hours. Until then, continue to monitor and treat appropriately. [facility][id number] [facility]
[2017-05-04] MEDS: SERTRALINE HCL 50 MG TAB PO SCH (21:14)
[2017-05-04] MEDS: PHENYTOIN SODIUM CAP EXTENDED 100 MG CAP PO SCH (21:14)
[2017-05-04] MEDS: TEMAZEPAM 15 MG CAP PO PRN (21:14)
[2017-05-04] MEDS: INSULIN DETEMIR 100 UNITS/ML PEN SUBCU SCH (21:16)
[2017-05-05] MEDS: KCL 20 MEQ/NS 1,000 ML IVS PRN (01:07)
[2017-05-05] MEDS ORDERED: PIPERACILLIN/TAZOBACTAM 3.375 GM VIAL IVPB ONE ×4 (01:47→20:08)
[2017-05-05] MEDS ORDERED: SODIUM CHLORIDE 0.9% 100ML 100 ML IVPB ONE ×4 (01:48→20:08)
[2017-05-05] MEDS: HYDROcodone 10MG/APAP 325MG 1 EA TAB PO PRN ×3 (02:22→20:42)
[2017-05-05] MEDS: PIPERACILLIN/TAZOBACTAM 3.375 GM in SODIUM CHLORIDE 0.9% 100ML 100 ML IVPB SCH ×4 (02:22→20:29)
[2017-05-05] MEDS: PANTOPRAZOLE SODIUM TAB 40 MG PO SCH (06:41)
[2017-05-05] MEDS: INSULIN LISPRO 100 UNITS/ML PEN SUBCU SCH ×4 (07:26→21:34)
[2017-05-05] MEDS: METHOCARBAMOL 750 MG TAB PO SCH ×4 (09:05→20:29)
[2017-05-05] MEDS: GABAPENTIN 400 MG CAP PO SCH ×3 (09:05→20:29)
[2017-05-05] MEDS: ENOXAPARIN SODIUM 40 MG/0.4 ML SYG SUBCU SCH (09:06)
[2017-05-05] MEDS: SODIUM CHLORIDE 0.9% (FLUSH) 10 ML SYG IV SCH ×2 (09:06→21:00)
[2017-05-05] MEDS: CHLORHEXIDINE GLUC 4% 15ML 45 ML, WATER FOR IRRIGATION 1,000 ML TOP SCH ×2 (09:08)
[2017-05-05] MEDS ORDERED: FLUCONAZOLE 150 MG TAB PO ONE (09:30)
[2017-05-05] MEDS ORDERED: cloNIDine HCL 0.1 MG TAB PO ONE (10:43)
[2017-05-05] MEDS ORDERED: FUROSEMIDE INJ 20 MG/2 ML VIAL IV ONE (10:43)
[2017-05-05] MEDS ORDERED: ACETAMINOPHEN 325 MG TAB PO PRN (10:44)
[2017-05-05] MEDS: LISINOPRIL 10 MG TAB PO SCH (10:54)
--- NOTE | 2017-05-05 14:20 | US ---
EXAM DESCRIPTION: Venous,Lower Extremity RT: ULTRASOUND. CLINICAL HISTORY: pain swelling of right lower extremity. COMPARISON: Venous deep lower extremity duplex evaluation left leg on this visit. TECHNIQUE: Two -dimensional and doppler sonographic evaluation of the deep venous system of the right lower extremity. FINDINGS: Doppler evaluation shows normal color flow and normal phasicity and augmentation of the right common femoral vein, femoral vein, popliteal vein, greater saphenous vein, peroneal, and posterior tibial vein. The right lower extremity deep veins showed normal occlusion with transducer pressure. Two-dimensional survey showed no echogenic thrombus within these veins. IMPRESSION: 1. Duplex ultrasound evaluation of the right lower extremity deep venous system showing no evidence of thrombosis or embolism. Electronically signed by: Chepe Salmon MD 05/05/2017 2:19 PM [facility]
--- NOTE | 2017-05-05 14:23 | US ---
EXAM DESCRIPTION: Venous,Lower Extremity LT: ULTRASOUND. CLINICAL HISTORY: pain swelling left lower extremity. COMPARISON: Deep venous right lower extremity duplex ultrasound evaluation today. Deep venous left lower extremity duplex ultrasound evaluation 12/16/2016. TECHNIQUE: Two -dimensional and doppler sonographic evaluation of the deep venous system of the left lower extremity. FINDINGS: Doppler evaluation shows normal color flow and normal phasicity and augmentation of the left common femoral vein, deep femoral vein, femoral vein, popliteal vein, lesser saphenous vein, peroneal, and posterior tibial vein. The left lower extremity deep veins showed normal occlusion with transducer pressure. Two-dimensional survey showed no echogenic thrombus within these veins. IMPRESSION: 1. Duplex ultrasound evaluation of the left lower extremity deep venous system showing no evidence of thrombosis or embolism. 2. Stable since prior examination 12/16/2016. Electronically signed by: Chepe Salmon MD 05/05/2017 2:22 PM [facility]
--- NOTE | 2017-05-05 18:57 | PCM.CORE ---
Physician DVT/VTE - Nurse DVT Assessment & Total Each Risk Factor Represents 1 Point: Age 41-60 Each Risk Factor is 1 Point: Obesity (BMI >25) DVT Assessment Score: 2 - 2 Moderate Risk Treatments: Early Ambulation * - 3-4 High Risk Treatments: Early Ambulation *, Sequential Compression Device Pharmacological: Enoxaparin 40 mg SQ Daily
[2017-05-05] MEDS: SERTRALINE HCL 50 MG TAB PO SCH (20:29)
[2017-05-05] MEDS: PHENYTOIN SODIUM CAP EXTENDED 100 MG CAP PO SCH (20:42)
[2017-05-05] MEDS: TEMAZEPAM 15 MG CAP PO PRN (20:42)
[2017-05-05] MEDS: INSULIN DETEMIR 100 UNITS/ML PEN SUBCU SCH (21:35)
[2017-05-05] MEDS: MICONAZOLE NITRATE 2 % 45 GM TUBE VAG SCH (23:26)
[2017-05-06] MEDS ORDERED: PIPERACILLIN/TAZOBACTAM 3.375 GM VIAL IVPB ONE ×3 (02:11→14:12)
[2017-05-06] MEDS ORDERED: SODIUM CHLORIDE 0.9% 100ML 100 ML IVPB ONE ×3 (02:11→14:12)
[2017-05-06] MEDS: PIPERACILLIN/TAZOBACTAM 3.375 GM in SODIUM CHLORIDE 0.9% 100ML 100 ML IVPB SCH ×3 (02:32→14:18)
[2017-05-06] MEDS: PANTOPRAZOLE SODIUM TAB 40 MG PO SCH (06:54)
[2017-05-06] MEDS: INSULIN LISPRO 100 UNITS/ML PEN SUBCU SCH ×4 (07:32→21:02)
--- NOTE | 2017-05-06 08:38 | PN ---
SUPERVISING PHYSICIAN: Diogenes Cantrell MD DATE: 05/05/17 SUBJECTIVE: The patient notes that her foot is feeling better. She just had some swelling in her lower extremities with some discomfort, cramping overnight. We did an ultrasound of the lower extremities and there was no evidence of any DVT and she has been on Lovenox since admission. I discussed with her that she may just be a little bit overloaded on her IV fluids. She has been saline locked and I told her I would give her a dose of Lasix. She remains afebrile. OBJECTIVE: VITAL SIGNS: Temperature 98.2. Pulse 80. Blood pressure initially 198/89, but after Lasix, clonidine and initiation of lisinopril, blood pressure was down to 169/79. Saturation 96% on room air. I&Os with the Lasix today shows she has a negative balance of 2350 with 750 in, 3100 out. She has not had a bowel movement today. Weight 98.8 kg. CHEST: Lungs clear to auscultation. HEART: Regular rate and rhythm. ABDOMEN: Obese, but soft and nontender. Positive bowel sounds. EXTREMITIES: Bilateral trace edema, but the right leg shows improvement from admission with less erythema to the foot. There is still trace of edema and the toe distally is showing a good area of granulation and no obvious fluctuations or drainage. NEUROLOGIC: Alert and oriented times three. LABORATORY: Blood sugars have been well controlled. ESR is actually down a little bit from 75 to 70. Again, her blood pressures have been anywhere from 193 to 228. MICROBIOLOGY: Blood cultures remain negative at 4 days. Her final culture from the clinic that was done prior to admission showed a group B strep that was sensitive to everything but clindamycin including sensitive to Levaquin and penicillin. ASSESSMENT: 1. Cellulitis of the right great toe, questionably complicated by metal foreign body imbedded noted on x-ray into the plantar aspect of the foot, although she continues showing good response with initiation of antibiotic therapy with Zosyn with culture results showing Group B Strep. 2. Mild lower extremity edema with no evidence of deep venous thrombosis on ultrasound studies, attributed to mild fluid excess from IV fluids with the patient now having been saline locked and given a low dose Lasix with good response. 3. Diabetes mellitus, type 2, fairly well controlled on insulin. 4. Seizure disorder with no recent seizure activity. 5. Diabetic neuropathy. PLAN: Again, we did complete an ultrasound this morning and there was no evidence of DVT. She remains on Lovenox. We will continue with Erma with anticipation of hopefully maybe being able to discharge tomorrow. Before discharge, it would be a good idea to touch base with Dr. Vogt and see if she is okay with her going on p.o. medications such as Augmentin or other suggestions. She had a good response to the Lasix. She has been saline locked and continues to have her leg elevated. Hopefully, we will be able to discharge tomorrow. We will continue to follow the patient along with Dr. Porras and continue to defer wound management to him. Until then, we will continue to monitor the patient closely and treat appropriately. #[id number] [facility]
[2017-05-06] MEDS: GABAPENTIN 400 MG CAP PO SCH ×3 (08:53→21:12)
[2017-05-06] MEDS: METHOCARBAMOL 750 MG TAB PO SCH ×4 (08:53→21:11)
[2017-05-06] MEDS: ENOXAPARIN SODIUM 40 MG/0.4 ML SYG SUBCU SCH (08:53)
[2017-05-06] MEDS: LISINOPRIL 10 MG TAB PO SCH (08:54)
[2017-05-06] MEDS: SODIUM CHLORIDE 0.9% (FLUSH) 10 ML SYG IV SCH ×2 (08:54→21:07)
[2017-05-06] MEDS: CHLORHEXIDINE GLUC 4% 15ML 45 ML, WATER FOR IRRIGATION 1,000 ML TOP SCH ×2 (08:58)
[2017-05-06] MEDS: HYDROcodone 10MG/APAP 325MG 1 EA TAB PO PRN ×2 (13:16→21:08)
[2017-05-06] MEDS: AMOXICILLIN & POT CLAVULANATE 875 MG TAB PO SCH (16:51)
[2017-05-06] MEDS ORDERED: TETANUS,DIPHTHERIA,PERTUSSIS 1 EA SYG IM ONE (18:21)
--- NOTE | 2017-05-06 19:20 | PN ---
DATE: 05/06/17 SUPERVISING PHYSICIAN: Diogenes Cantrell M.D. SUBJECTIVE: The patient is sitting up in her chair in her room. She has been ambulating in the ngo. She has no complaints of chest pain, nausea, vomiting, diarrhea or constipation. Does admit that her toe is still swollen but it hurts much less than it has been. OBJECTIVE: VITAL SIGNS: She is afebrile, heart rate 72, blood pressure 147/70, respiratory rate 18, O2 sat is 95% on room air. GENERAL: This is a 57 year-old female who is sitting in her room. She is on no acute distress. RESPIRATORY: Essentially clear to auscultation bilaterally. CARDIAC: Regular rate and rhythm. EXTREMITIES: Her right great toe is covered in a bandage. It is dry and intact. Bilateral pedal pulses are palpable at +2. The right foot is slightly edematous from mid foot extending down to the right great toe. NEUROLOGIC: She is awake, alert and oriented times three. LABORATORY: Blood sugars have run between 129 and 188. There are no other labs or films to report at this time. ASSESSMENT: 1. Cellulitis of the right great toe, questionably complicated by metal foreign body imbedded as noted per x-ray on the plantar aspect of the foot. She has been on Zosyn antibiotics and the culture showing Group B Strep. 2. Mild lower extremity edema with no evidence of deep venous thrombosis on ultrasound studies. 3. Diabetes mellitus, type 2, poorly controlled on insulin therapy with an A1c of 11.2. 4. Seizure disorder with no recent seizure activity. 5. Diabetic neuropathy. PLAN: We will continue present supportive care. I spoke with Dr. Vogt, Infectious Diseases in [employer], and she felt like we could discontinue the Zosyn and start her on Augmentin. We will repeat her ESR in about 1 week. Her admission ESR was 75, it was down to 70 yesterday and that will be ordered, and the results will be called to me. She will followup with Dr. Porras in 2 weeks. I will send her home on Augmentin as well as Align, and her previous medications. If the she tolerates the Augmentin and has no complications on it , we will discharge her home in the morning. Dr. Cantrell is the collaborating physician available for consultation. #[id number] [facility]
[2017-05-06] MEDS: INSULIN DETEMIR 100 UNITS/ML PEN SUBCU SCH (21:02)
[2017-05-06] MEDS: BIFIDOBACTERIUM INFANTIS 4 MG CAP PO SCH (21:09)
[2017-05-06] MEDS: SERTRALINE HCL 50 MG TAB PO SCH (21:09)
[2017-05-06] MEDS: PHENYTOIN SODIUM CAP EXTENDED 100 MG CAP PO SCH (21:09)
[2017-05-06] MEDS: MICONAZOLE NITRATE 2 % 45 GM TUBE VAG SCH (21:09)
[2017-05-07] MEDS: HYDROcodone 10MG/APAP 325MG 1 EA TAB PO PRN (03:39)
[2017-05-07] MEDS: AMOXICILLIN & POT CLAVULANATE 875 MG TAB PO SCH (04:06)
[2017-05-07] MEDS: PANTOPRAZOLE SODIUM TAB 40 MG PO SCH (06:46)
[2017-05-07 07:15] VITALS: TEMP 98.1
[2017-05-07] MEDS: INSULIN LISPRO 100 UNITS/ML PEN SUBCU SCH (08:09)
[2017-05-07] MEDS: GABAPENTIN 400 MG CAP PO SCH (08:53)
[2017-05-07] MEDS: SODIUM CHLORIDE 0.9% (FLUSH) 10 ML SYG IV SCH (08:54)
[2017-05-07] MEDS: ENOXAPARIN SODIUM 40 MG/0.4 ML SYG SUBCU SCH (08:54)
[2017-05-07] MEDS: BIFIDOBACTERIUM INFANTIS 4 MG CAP PO SCH (08:54)
[2017-05-07] MEDS: LISINOPRIL 10 MG TAB PO SCH (08:54)
[2017-05-07] MEDS: METHOCARBAMOL 750 MG TAB PO SCH (08:54)
[2017-05-07] MEDS: CHLORHEXIDINE GLUC 4% 15ML 45 ML, WATER FOR IRRIGATION 1,000 ML TOP SCH ×2 (09:06)
[2017-05-07 11:01] VITALS: BP 133/77; O2SAT 98
--- NOTE | 2017-05-09 20:32 | DS ---
SUPERVISING PHYSICIAN: Diogenes Cantrell M.D. DISCHARGE DIAGNOSIS: 1. Cellulitis of the right great toe questionably complicated by metal foreign body imbedded as noted per x-ray on the plantar aspect of the foot. She has been on Zosyn antibiotics in the hospital recently transitioned to Augmentin. The culture shows positive for Group B Streptococcus. 2. Mild lower extremity edema with no evidence of deep venous thrombosis on ultrasound studies. 3. Diabetes mellitus type 2 poorly controlled on insulin therapy with an A1c of 11.2. 4. Seizure disorder with no recent seizure activity. 5. Diabetic neuropathy. HISTORY OF PRESENT ILLNESS: This is a 57 year-old female patient who was seen in Dr. Porras's office due to a sore on her right foot. She had actually been in the Emergency Room on the of this month due to the same problem and she was given Levaquin and Cipro at that time. The injury occurred approximately 1 week ago when she broke something on her stove at home. She was in socks and there was some metal on the floor and she stepped on it. Due to her diabetic retinopathy, she was unable to feel anything on her foot. She initially thought something was in it, but she cleaned it and put an antibiotic ointment on. The next day when she removed the dressing, she thought that any residual metal was gone. The wound progressively worsened which brought her to Dr. Porras' s office. He opened the wound initially and cleaned it out. He sent it for culture and this morning the wound was not any better in spite of her antibiotic , so she was directly admitted from Dr. Porras's office with cellulitis of the right toe. HOSPITAL COURSE: Initially the patient was placed on Zosyn antibiotic. Dr. Vogt, Infectious Diseases specialist, was contacted and she recommended that we start the Zosyn and if later culture showed MRSA we could then initiate vancomycin. She responded well to her therapy. Dressing changes were done daily. Yesterday, she actually was transitioned off of the Zosyn and placed on Augmentin antibiotic so she could take those as an outpatient. Today, she will be discharged home. DISCHARGE PLAN: The patient will be discharged home in stable condition. She is to do daily dressing changes as instructed by Dr. Porras. She is to continue with her Augmentin and Align. She is to followup with Dr. Porras on 05/19/17 at 3 :30 PM. During her hospital stay her ESR was elevated to 75 on admission and subsequent ESR was 70. She is to come to the hospital on May 13 or May 14 for a followup lab that consists of an ESR. The results will be called to me. Her antibiotic therapy may have to be changed if her sed rate is not improved. Otherwise she is to return to the hospital or followup with Dr. Porras or her primary care physician, Dr. Mesa's office for any other complications or problems. DISCHARGE MEDICATIONS: 1. Levemir. 2. Phenytoin. 3. Hydrocodone. 4. Sertraline. 5. Robaxin. 6. Estazolam. 7. Gabapentin. 8. Augmentin. 9. Align. Dr. Cantrell is the collaborating physician available for consultation. [facility][id number] [facility]
== END 2017-05-07 11:30 | disposition home or self-care (01) | DRG 603 ==
LOC: MS 11:25
PROVIDERS: ADMIT Nurse Practitioner Acute Care; ATTEND Nurse Practitioner Acute Care
PROC: 3E0234Z Introduction of Serum, Toxoid and Vaccine into Muscle, Percutaneous Approach (ICD-10-PCS; principal; 2017-05-06)
DX: L03.031 Cellulitis of right toe (principal); M79.5 Residual foreign body in soft tissue; G40.909 Epilepsy, unspecified, not intractable, without status epilepticus; E11.40 Type 2 diabetes mellitus with diabetic neuropathy, unspecified; B95.1 Streptococcus, group B, as the cause of diseases classified elsewhere; S91.12 Laceration with foreign body of toe without damage to nail; W22.8XXD Striking against or struck by other objects, subsequent encounter; Z23 Encounter for immunization; Z79.4 Long term (current) use of insulin; Z87.891 Personal history of nicotine dependence

== ENCOUNTER → 2017-05-11 | Outpatient (CLI) | payer SELFPAY | LOC: LAB.O 15:14 | PROVIDERS: ATTEND Nurse Practitioner Acute Care | DX: L03.115 Cellulitis of right lower limb (principal) ==

== ENCOUNTER 2019-03-29 02:57 | Inpatient (IN) | payer MEDICARE ==
--- NOTE | 2019-03-29 03:25 | ED.PDOC ---
History of Present Illness - General Chief Complaint: Back Pain or Injury Stated Complaint: Back pain Time Seen by Provider: 03/29/19 02:58 Source: patient - History of Present Illness Initial Comments: 58 yo female with poorly controlled DM2 who is bib EMS from home for cc of falling injury and acute illness. Pt reports just [employer] she was trying to grab a pen on the nightstand by her bed when she accidentally slid down off the bed down onto the ground slowly landing on her knees and tailbone. Reports was unable to stand up even with assistance so EMS called. Pt states she has some mild acute pain to BL knees, R hip, and low back/tailbone from the injury. States low back pain is chronic and largely unchanged, however. Denies any head injuries, neck pain, LOC, or other acute injuries during fall. Pt actually seems more concerned not about her fall but regarding some acute recent illness, which began yesterday AM. Reports sx's of n/v/d. States has had 3 episodes of watery diarrhea as well as a couple episodes of NBNB emesis this evening. Denies any fevers, chills. Reports sore throat, generalized headache. Has had intermittent cough prod for yellow sputum x1 week now. Denies any dyspnea, wheezing. Denies urinary sx's. Pt reports her glucometer has not been working for past couple weeks. She typically takes Novolin before each meal on a sliding scale but states has not taken any insulin for past couple weeks since she hasn't been able to check her glucose level. Previously Rx'd Levemir 50 units nightly but states her PCP (Dr. Bruno Epstein) dc'd this recently and she is now only on the sliding scale. Allergies/Adverse Reactions: Allergies NO KNOWN ALLERGY Allergy (Verified 05/06/17 13:35) Home Medications: Ambulatory Orders RX: Insulin Detemir [Levemir] 50 unit SUBCU BEDTIME 10/05/14 RX: Phenytoin Sodium Extended 300 mg PO BEDTIME #90 cap 07/28/16 HYDROcodone 10MG/APAP 325MG 1 tablet PO Q4HR PRN 01/06/17 RX: Estazolam 1 mg PO BEDTIME 01/06/17 RX: Methocarbamol [Robaxin] 750 mg PO QID 01/06/17 RX: Sertraline HCl 100 mg PO BEDTIME 01/06/17 RX: Gabapentin 800 mg PO TID 05/01/17 RX: Amoxicillin & Pot Clavulanate [Augmentin Tab] 875 mg PO Q12H #20 tab 05/07/17 RX: Bifidobacterium Infantis [Align] 4 mg PO BID cap 05/07/17 Past Medical History (General) - Patient Medical History Hx Seizures: Yes - dilantin Hx Stroke: No Hx Asthma: No Hx Cardiac Disorders: No Hx Congestive Heart Failure: No Hx Pacemaker: No Hx Hypertension: Yes Hx Diabetes: Yes - 2000 Hx MRSA: No - Vaccination History Hx Influenza Vaccination: Yes Hx Pneumococcal Vaccination: Yes - Social History Hx Tobacco Use: No - quit 2011 Hx Alcohol Use: No Hx Substance Use: No Hx Depression: Yes Hx Physical Abuse: No Hx Emotional Abuse: No - Female History Patient : No Family Medical History - Family History Mother Hx Family Congestive Heart Failure: Yes Hx Family;Other: COPD Progress - Progress Progress: 03/29/19 03:00 Fall, acute illness -consider back frx, hip frx, knee frx(s) -for illness, consider gastroenteritis vs colitis vs flu vs strep vs UTI. Consider also electrolyte derangement, hyperglycemia, HHS, other -XR chest, L spine, pelvis, BL knees -pt stable 03/29/19 04:16 -Labs reveal K 6.4, Na 126. Check stat EKG, give Ca gluconate 1 g IV, regular insulin 10 units IV, albuterol nebs 5 mg. Unable to give Lasix given SYBIL and concerned to give Kayexalate given ongoing GI losses and dehydration/SYBIL -hyperkalemia - suspect likely due to acute illness with dehydration and SYBIL. Pt will require admission for further care/tele monitoring. -hyperglycemia - Type 2 diabetic, non-ketone producing, no ketones on UA, anion gap is 11. Will need continued correction with education and reassessment of what her insulin regimen should be 03/29/19 05:19 -CXR shows peribronchial cuffing and some perihilar congestion c/w bronchitis - as pt with fever and productive cough, will begin Abx with Azithromycin 500 mg PO (pt reports allergy to Zosyn). Flu & strep are negative. EKG shows no peaked T waves, largely unremarkable. -XR BL knees, pelvis, & L-spine show no acute fractures -Spoke with Osito Kearney regarding need for admission for hyperkalemia, SYBIL. He states he will need to see if there any available telemetry beds and will call me back. 03/29/19 05:33 -A bed is available and pt has been accepted for admission by Osito Kearney. Alfonso Kelley MD Billing #[id number] - Results/Orders Results/Orders: 03/29/19 02:58 IV Care:Saline Lock per Protoc QSHIFT Telemetry .ONCE Sodium Chloride 0.9% (Flush) [Saline Flush Syringe] 10 ml IV PRN PRN EKG Stat 03/29/19 02:59 EKG Assessment ONCE Pulse Oximetry Assessment DAILY 03/29/19 03:19 STREP A SCREEN CULTURE Stat 03/29/19 04:10 EKG Assessment ONCE 03/29/19 04:15 EKG STAT 03/29/19 05:36 ED Intent to Admit Routine 03/29/19 09:00 Pulse Ox Daily Laboratory Results - last 24 hr 03/29/19 03/29/19 03/29/19 03:00 03:00 03:00 WBC 7.3 RBC 3.84 L Hgb 10.2 L Hct 31.0 L MCV 80.9 L MCH 26.5 L MCHC 32.8 L RDW 14.4 Plt Count 172 MPV 9.6 Absolute Neuts (auto) 6.30 Absolute Lymphs (auto) 0.40 L Absolute Monos (auto) 0.40 Absolute Eos (auto) 0.20 Absolute Basos (auto) 0.00 Neutrophils % 85.9 H Lymphocytes % 6.0 L Monocytes % 5.2 Eosinophils % 2.3 Basophils % 0.6 PT 10.4 INR 1.04 PTT (SP) 28.6 Sodium 126 L Potassium 6.4 H Chloride 92 L Carbon Dioxide 23 Anion Gap 17.4 BUN 39 H Creatinine 1.37 H BUN/Creatinine Ratio 28.5 H POC Glucose Random Glucose 420 H* Serum Osmolality 280.7 Calcium 9.2 Total Bilirubin 0.3 AST 20 ALT 70 H Alkaline Phosphatase 102 Serum Total Protein 7.6 Albumin 3.6 Globulin 4.0 H Albumin/Globulin Ratio 0.9 L Urine Color Urine Appearance Urine pH Ur Specific [place] Urine Protein Urine Glucose (UA) Urine Ketones Urine Blood Urine Nitrite Urine Bilirubin Urine Urobilinogen Ur Leukocyte Esterase Urine RBC Urine WBC Ur Epithelial Cells Other Crystals Urine Bacteria Group A Strep Rapid 03/29/19 03/29/19 03/29/19 03:19 04:08 05:31 WBC RBC Hgb Hct MCV MCH MCHC RDW Plt Count MPV Absolute Neuts (auto) Absolute Lymphs (auto) Absolute Monos (auto) Absolute Eos (auto) Absolute Basos (auto) Neutrophils % Lymphocytes % Monocytes % Eosinophils % Basophils % PT INR PTT (SP) Sodium Potassium Chloride Carbon Dioxide Anion Gap BUN Creatinine BUN/Creatinine Ratio POC Glucose 365 H Random Glucose Serum Osmolality Calcium Total Bilirubin AST ALT Alkaline Phosphatase Serum Total Protein Albumin Globulin Albumin/Globulin Ratio Urine Color Yellow Urine Appearance Clear Urine pH 6.0 Ur Specific [place] 1.015 Urine Protein 100 H Urine Glucose (UA) >=1000 H Urine Ketones Negative Urine Blood Moderate H Urine Nitrite Negative Urine Bilirubin Negative Urine Urobilinogen 0.2 Ur Leukocyte Esterase Negative Urine RBC 10-20 H Urine WBC 0-1 Ur Epithelial Cells 1-3 Other Crystals 1+powder crystals Urine Bacteria Rare Group A Strep Rapid Negative - EKG/XRAY/CT EKG: Sinus - NSR, HR 95, no ST elevations or q waves, axis and intervals normal, appears unchanged from 01/08/17 EKG. Departure - Departure Clinical Impression: Hyperkalemia, Acute kidney injury, Hyperglycemia due to type 2 diabetes mellitus, Acute bronchitis Time of Disposition: 05:36 Disposition: Admit Patient Condition: Fair Home Medications: Ambulatory Orders RX: Insulin Detemir [Levemir] 50 unit SUBCU BEDTIME 10/05/14 RX: Phenytoin Sodium Extended 300 mg PO BEDTIME #90 cap 07/28/16 HYDROcodone 10MG/APAP 325MG 1 tablet PO Q4HR PRN 01/06/17 RX: Estazolam 1 mg PO BEDTIME 01/06/17 RX: Methocarbamol [Robaxin] 750 mg PO QID 01/06/17 RX: Sertraline HCl 100 mg PO BEDTIME 01/06/17 RX: Gabapentin 800 mg PO TID 05/01/17 RX: Amoxicillin & Pot Clavulanate [Augmentin Tab] 875 mg PO Q12H #20 tab 05/07/17 RX: Bifidobacterium Infantis [Align] 4 mg PO BID cap 05/07/17 Decision To Admit - Decistion To Admit Decision to Admit Reason: Admit from ER Decision to Admit Date: 03/29/19 Decision to Admit Time: 05:36
[2019-03-29] MEDS ORDERED: INSULIN, REG.(HUMAN) 100 U/ML VIAL IV ONE (04:10)
[2019-03-29] MEDS ORDERED: CALCIUM GLUCONATE INJ 1 GM/10 ML VIAL IV ONE (04:11)
[2019-03-29] MEDS: ALBUTEROL SULFATE 2.5 MG/3 ML VIAL NEB ONE ×2 (04:41→04:42)
--- NOTE | 2019-03-29 04:51 | RAD ---
EXAM: XR Chest, 1 View CLINICAL HISTORY: The patient is 58 years old and is Female; ground level fall TECHNIQUE: Frontal view of the chest. COMPARISON: Chest radiograph from 01/06/2017 FINDINGS: LUNGS: There is mild peribronchial thickening. No consolidation visualized. PLEURAL SPACE: Unremarkable. No pneumothorax. HEART: Mild enlargement of the cardiac silhouette. MEDIASTINUM: Unremarkable. BONES/JOINTS: Degenerative changes of the spine. No obvious acute fracture. IMPRESSION: Mild peribronchial thickening, which may be related to bronchitis. Electronically signed by: Loretta Fierro MD 03/29/2019 4:50 AM [facility]
--- NOTE | 2019-03-29 04:54 | RAD ---
EXAM: XR Left Knee Complete, 3 views CLINICAL HISTORY: The patient is 58 years old and is Female; s/p falling out of bed, BL knee pain TECHNIQUE: 3 views of the left knee. COMPARISON: Radiographs of the left knee from 06/27/2010 FINDINGS: BONES/JOINTS: Mild diffuse narrowing of the knee joint. Mild tricompartmental osteophytosis. No dislocation. No obvious acute fracture. Small knee joint effusion cannot be excluded on this exam. SOFT TISSUES: No significant soft tissue swelling visualized. VASCULATURE: Atherosclerotic calcifications. IMPRESSION: No obvious acute fracture. Electronically signed by: Loretta Fierro MD 03/29/2019 4:53 AM [facility]
--- NOTE | 2019-03-29 05:01 | RAD ---
EXAM: Knee,Right Complete Right knee three views HISTORY: Falling out of bed, bilateral knee pain COMPARISON: Bilateral knees 06/27/2010 TECHNIQUE: Right knee three views-AP, patellar sunrise, crosstable lateral FINDINGS: No fracture or dislocation. Mild joint space narrowing at medial and lateral femorotibial compartments. Tibial spine hypertrophy. Small osteophytes of right knee. Extensive vascular calcifications throughout visualized right lower extremity. IMPRESSION: Mild right knee DJD. Electronically signed by: Volodymyr Lamb MD 03/29/2019 4:59 AM [facility]
[2019-03-29] MEDS ORDERED: SODIUM CHLORIDE 0.9% 1000ML 1,000 ML IVS ONE ×2 (05:06→08:45)
--- NOTE | 2019-03-29 05:07 | RAD ---
EXAM: Lumbar Spine 3 Views HISTORY: Acute low back pain, falling out of bed COMPARISON: None TECHNIQUE: Lumbar spine three views-lumbar AP, lumbar lateral, lumbosacral lateral FINDINGS: Lumbar vertebral bodies show normal height and alignment. No fracture or subluxation. No significant lumbar disc height loss. Right upper abdominal surgical clips. Vascular calcifications and abdomen and pelvis. IMPRESSION: No evidence of lumbar spine injury. Electronically signed by: Volodymyr Lamb MD 03/29/2019 5:05 AM [facility]
--- NOTE | 2019-03-29 05:11 | RAD ---
EXAM: Pelvis,2 or More Views HISTORY: Falling out of bed, right hip pain COMPARISON: None TECHNIQUE: Pelvis 2 views FINDINGS: No fracture or dislocation. Hip joint spaces unremarkable. Bilateral proximal thigh vascular calcifications. Surgical clips overlie inferior left pelvis. IMPRESSION: No pelvic or hip fracture. Electronically signed by: Volodymyr Lamb MD 03/29/2019 5:09 AM [facility]
[2019-03-29] MEDS ORDERED: AZITHROMYCIN 250 MG TAB PO ONE (05:27)
[2019-03-29] MEDS: SODIUM CHLORIDE 0.9% (FLUSH) 10 ML SYG IV PRN (05:46)
[2019-03-29] MEDS ORDERED: ACETAMINOPHEN 325 MG TAB ONE (05:53)
[2019-03-29] MEDS ORDERED: ACETAMINOPHEN 325 MG TAB PO ONE (05:54)
[2019-03-29] MEDS ORDERED: SODIUM CHLORIDE 0.9% 1000ML 1,000 ML IVS PRN ×2 (07:55→17:21)
[2019-03-29] MEDS ORDERED: GLUCAGON INJ 1 MG VIAL SUBCU PRN (08:09)
[2019-03-29] MEDS ORDERED: DEXTROSE 10% 500ML IVPB PRN (08:09)
[2019-03-29] MEDS ORDERED: ACETAMINOPHEN 325 MG TAB PO PRN (08:12)
[2019-03-29] MEDS ORDERED: SODIUM CHLORIDE 0.9% (FLUSH) 10 ML SYG IV PRN (08:29)
[2019-03-29] MEDS ORDERED: ALUM & MAG HYDROX-SIMETHICONE 30 ML UD PO PRN (08:29)
[2019-03-29] MEDS ORDERED: ALBUTEROL SULFATE 2.5 MG/3 ML VIAL NEB PRN (08:29)
[2019-03-29] MEDS ORDERED: MAGNESIUM HYDROXIDE 30 ML UD PO PRN (08:29)
[2019-03-29] MEDS ORDERED: ONDANSETRON INJ 4 MG/2 ML VIAL IV PRN (08:29)
[2019-03-29] MEDS ORDERED: VANCOMYCIN PER PHARMACY IVPB SCH (08:30)
[2019-03-29] MEDS ORDERED: SODIUM CHL 0.9% 50ML MIN-BAG+ 50 ML IVPB ONE (08:40)
[2019-03-29] MEDS ORDERED: cefTRIAXone SODIUM 1 GM VIAL ONE (08:40)
[2019-03-29] MEDS ORDERED: INSULIN DETEMIR 100 UNITS/ML PEN SUBCU ONE (08:41)
[2019-03-29] MEDS ORDERED: INSULIN LISPRO 100 UNITS/ML PEN SUBCU ONE (08:44)
[2019-03-29] MEDS ORDERED: SODIUM CHLORIDE 0.45% 1000ML 1,000 ML IVS PRN (08:47)
[2019-03-29] MEDS: cefTRIAXone SODIUM 1 GM in SODIUM CHL 0.9% 50ML MIN-BAG+ 50 ML IVPB SCH (09:25)
[2019-03-29] MEDS: OSELTAMIVIR 75 MG CAP PO SCH ×2 (09:26→21:49)
[2019-03-29] MEDS: IV SET AND CAP CHANGE INJ INJ SCH (09:26)
--- NOTE | 2019-03-29 10:30 | HP ---
SUPERVISING PHYSICIAN: Reginaldo Medina MD CHIEF COMPLAINT: Back pain. HISTORY OF PRESENT ILLNESS: Ms. Lawson is a 58-year-old female patient that has a history of poorly controlled diabetes and a chronic foot ulcer infection to the left foot. She was brought to the Emergency Department this morning via EMS after she sustained apparently a fall out of her bed, but noted she was overall not feeling well. She does utilize insulin for treatment of her diabetes. She endorses that just prior to arrival, she was trying to grab a pen on her night stand and actually slid out of bed onto the ground, landing on her tailbone. She reportedly was unable to stand even with the assistance of EMS. After further discussion with her, the patient does endorse that she takes quite a bit of pain medicine at night before she goes to bed. She denied any head injuries, loss of consciousness. She does note she has been having some nausea, vomiting, diarrhea with some more diarrhea over the last several days, but denied any fever or chills. She denied significant headache, sore throat. She does note she is having a little bit of productive cough with some yellow sputum and some mild dyspnea on exertion. She notes in regards to her blood sugars she has not been following those as well as she should because she does not have a glucometer that works. She normally takes Novolin prior to each meal on sliding scale, but notes she has not taken any insulin for the last several days since she has not taken her blood sugar levels and she was having some nausea and vomiting. She has been on Levemir in the past, but has recently been changed just to a sliding scale. Initially in the Emergency Room, her laboratory studies showed she had an elevated blood sugar at 420. Sodium was 126, but corrected 132. She did have an elevated creatinine at 1.37. Anion gap and CO2 were both normal. CBC showed normal white count 7,300, some anemia with 10.2 hemoglobin and hematocrit 31.0 with a microcytic/hypochromic presentation. Differential was without a left shift. Urinalysis showed greater than 1000 of glucose, but negative for ketones. There was note of moderate blood with microscopic hematuria with RBCs 10 to 20, no WBCs, just rare bacteria. Rapid strep screen was negative as well as influenza testing by PCR for A and B. She does note that she does have the diabetic ulcer on her left toe, the left plantar aspect of her foot that she normally has been getting wound management through [facility]. She also endorsed that she is supposed to be on 2 antibiotics, one she thinks is Bactrim and the other she is not sure of, which she had not gotten filled. She has in the past been on IV antibiotics and aggressive wound management. Her vital signs on admission showed she was febrile of 102.4, tachycardic at 105, but a normal blood pressure of 129/73. Saturation 94% on nasal cannula at rest. She had multiple imaging studies completed of both knees, pelvis, lumbar spine with no acute injuries found per radiologic interpretation. Her chest x-ray which was a single view chest showed some mild peribronchial thickening which could represent bronchitis. Given her uncontrollable blood sugars and the fact that she had a hyperkalemia initially with a potassium of 6.4, the patient is going to be admitted for treatment of hyperkalemia, hyperglycemia and uncertain etiology of infectious source. She was placed in observation in stable condition. PAST MEDICAL HISTORY: 1. Diabetes mellitus, type 2, on insulin therapy. 2. Seizure disorder. 3. Diabetic neuropathy. 4. Chronic diabetic ulcer to the left foot under care of wound management in [place], [place]. PAST SURGICAL HISTORY: 1. section. 2. Hysterectomy. 3. Removal of ganglion cyst. 4. Heel spur removal. 5. Cholecystectomy. 6. Hernia surgery. 7. Left knee surgery. 8. Toe surgery times 2. 9. Partial amputation of great toe on the left. 10. Tonsillectomy. HOME MEDICATIONS: 1. Sertraline 100 mg at bedtime. 2. Dilantin extended release 300 mg at bedtime. 3. Levemir 50 units subcutaneously at bedtime. 4. [place] 10/325 1 q.4h. as needed for pain. 5. Gabapentin 800 mg t.i.d. 6. Estazolam 1 mg at bedtime. 7. Align 4 mg b.i.d. ALLERGIES: NO KNOWN DRUG ALLERGIES. FAMILY HISTORY: Noncontributory. SOCIAL HISTORY: The patient is disabled. She lives in [place]. She was a previous smoke approximately 30 packs plus per year and quit about a year ago. She denies any alcohol usage or illicit drugs. REVIEW OF SYSTEMS: CONSTITUTIONAL: Positive for general malaise, fever, chills, reported rigors at home. HEENT: Negative for headaches, sore throats, earaches, nasal congestion, vision changes. RESPIRATORY: Positive for slightly productive cough with some mild shortness of breath on exertion. Denies wheezing. CARDIOVASCULAR: Negative for chest pain, palpitations or syncopal episodes. GASTROINTESTINAL: Positive for chronic constipation issues. Negative for diarrhea or abdominal pain. GENITOURINARY: Negative for dysuria, hematuria, polyuria. MUSCULOSKELETAL: Denies joint swelling, joint arthralgias. NEUROLOGIC: Negative for syncopal episodes, ataxia, seizures or other focal deficits. HEMATOLOGIC: Denies easy bruising or unexplained bleeding or transfusion reactions. PHYSICAL EXAMINATION: VITAL SIGNS: Initially on admission, she was showing a fever of 102.4, pulse 90, blood pressure 135/56, cataract 88% on room air with respirations 22. On nasal cannula, she was showing 94% saturation. With Motrin and Tylenol, temperature was returning to baseline levels initially admission to 99.8. GENERAL: The patient is resting comfortably, appears to be in no acute distress. She is alert. HEENT: Tympanic membranes clear bilaterally. Oropharynx is pink, moist without any lesions. NECK: Supple, nontender with full range of motion. No jugular venous distention noted. RESPIRATORY: Lung sounds fairly coarse throughout, diminished towards the bases with no obvious rhonchi, wheezing or rales. CARDIOVASCULAR: Regular rate and rhythm without any appreciable murmurs, gallops, or rubs. ABDOMEN: Obese, soft, nontender. Positive bowel sounds. EXTREMITIES: There is no cyanosis, clubbing or edema. NEUROLOGIC: Cranial nerves II-XII are grossly intact. Facial features are symmetrical. Extraocular movements are within normal limits. The patient is alert and oriented times three. SKIN: Warm, pink and dry. LABORATORY: CBC showed white count 7,300, hemoglobin 10.2, hematocrit 31.0 with a microcytic/hypochromic presentation on RBC indices with platelet count 172,000. Differential without a left shift. Coagulation studies showed normal PT, PTT. Chemistries initially on admission showed glucose 420 with corrected sodium at 126 up to 132 and potassium 6.4 initially with a normal carbon dioxide and normal anion. BUN 39, creatinine 1.37. Liver functions showed slightly elevated ALT at 70, otherwise total bilirubin and AST were normal. Amylase and lipase were normal at 16 and 27 respectively. Urinalysis showed greater than 1000 glucose, negative ketones, 100 protein with 10 to 20 RBCs, otherwise within normal limits. Rapid group A strep negative. Rapid flu by PCR was negative. Blood cultures pending. RADIOLOGY: She had multiple x-rays including bilateral knees, lumbar spine and pelvis which were without any acute findings. Chest x-ray did show bronchial cuffing consistent with probable bronchitis. Left foot x-ray and abdominopelvic CT were pending. 12-lead EKG on admission showed a sinus rhythm at 95. No ST or T-wave changes. No P-wave changes in comparison to the one on 01/08/17. ASSESSMENT: 1. Electrolyte imbalance to include hyperkalemia, likely due to poorly controlled diabetes with a hyperglycemia. 2. Glucose intolerance with hyperglycemia in a type 2 diabetic patient on insulin therapy with no signs of diabetic ketoacidosis. 3. Sepsis with acute bronchitis, concerning for bilateral pneumonia with additional etiology of infectious source being possible osteomyelitis and cellulitis of the left foot with diabetic ulcer, chronic. 4. Acute kidney injury, likely due to dehydration from poorly controlled diabetes. 5. History of seizure disorder. 6. Chronic diabetic neuropathy from poorly controlled diabetes. PLAN: The patient is going to be admitted for hyperkalemia. She was treated in the Emergency Room with insulin, calcium gluconate and fluids. We will continue with aggressive management with IV fluids and follow her BMPs until her potassium is back to baseline levels. We will utilize Levemir long-acting insulin along with sliding scale additional coverage a.c. and h.s. Given the infection to her left foot, we will start her on vancomycin with additional coverage with Rocephin and azithromycin for concern for possible pneumonia. We will need to touch base with the [facility] to find out where she is at on her treatment course as well as what antibiotics she was recently on or should be on at this point. We will probably need to get a consultation with Dr. Porras. After we get her x-ray back, there is probably going to be concern for osteomyelitis because she has had that in the past and we may need to get an MRI, but this may have already been done in the recent weeks through the [facility]. She will be on DVT prophylaxis per protocol. She will be on insulin sliding scale per protocol. She will be on an 1800 calorie diet. We will follow her labs closely and anticipate to her length of stay to be at least 2 to 3 days. Also given that she had significant fever and we cannot completely rule out the flu, we will put her on Tamiflu given her multiple risk factors. We will provide her fluids, antiemetics and treat her fever as needed. Until the patient can transition to outpatient management, we will continue to monitor and treat as needed. #[id number] MTDD
--- NOTE | 2019-03-29 11:18 | RAD ---
EXAM DESCRIPTION: Left foot, 3 radiographs CLINICAL HISTORY: diabetic ulcer left great toe FINDINGS/ IMPRESSION: Previous amputation of the distal phalanx great toe. Overlying soft tissue swelling and a defect compatible with ulceration. Faint demineralization and irregularity of the distal aspect of the proximal phalanx may be early osteomyelitis. Recommend pre and postcontrast MRI for diagnosis Atherosclerotic vascular calcification. Diffuse soft tissue edema and swelling Electronically signed by: Diogenes Ramesh MD 03/29/2019 11:[address] [facility]
[2019-03-29] MEDS: INSULIN LISPRO 100 UNITS/ML PEN SUBCU SCH ×5 (11:49→21:50)
[2019-03-29] MEDS ORDERED: SODIUM CHLORIDE 0.9% 500ML 500 ML ONE ×2 (11:51→11:52)
[2019-03-29] MEDS ORDERED: VANCOMYCIN HCL INJ 1,000 MG VIAL IVPB ONE ×2 (11:51→11:52)
[2019-03-29] MEDS: VANCOMYCIN HCL INJ 1,750 MG in SODIUM CHLORIDE 0.9% 500ML 500 ML IVPB SCH (12:14)
[2019-03-29] MEDS: IPRATROPIUM/ALBUTEROL 3 ML VIAL INH SCH ×2 (12:58→19:00)
[2019-03-29] MEDS: IBUPROFEN 400 MG TAB PO PRN (17:02)
--- NOTE | 2019-03-29 20:38 | CT ---
PROCEDURE: Abdomen/Pelvis w/o Contrast CLINICAL HISTORY: abdominal pain; fever TECHNIQUE: Contiguous axial images obtained through the abdomen and pelvis without IV contrast. Coronal and sagittal reformatted images were provided. This exam was performed according to our departmental dose-optimization program, which includes automated exposure control, adjustment of the mA and/or kV according to patient size and/or use of iterative reconstruction technique. COMPARISON: 09/20/2013 FINDINGS: Lung bases: Mild interstitial thickening and patchy groundglass opacification. Moderate right and mild left basilar consolidation. Small right and trace left pleural effusions. The heart is mildly enlarged. Coronary artery and mitral annular calcification. Liver: Marked hepatomegaly significant interval change. Gallbladder and biliary system: Prior cholecystectomy. Pancreas: Grossly unremarkable Spleen: Mild splenomegaly without significant interval change. Adrenals: Unremarkable Kidneys: No calculi. No hydronephrosis. Bowel: Mild infiltrative changes surrounding the proximal duodenum. Moderate stool. No obstruction. Appendix: The appendix is not definitively visualized. No findings to suggest acute appendicitis. Urinary bladder: The urinary bladder is distended. Reproductive: Prior hysterectomy. Lymph nodes: No pathologically enlarged lymph nodes. Portal hepatic and portacaval lymph nodes measuring up to without significant interval change. Peritoneum: No focal fluid collection. No free air. Vessels: Mild to moderate atherosclerotic disease. No abdominal aortic aneurysm. Abdominal wall: Midline ventral abdominal wall incisional scar. Small to moderate fat-containing lobulated left lower ventral abdominal wall hernia. Bones: Multilevel spondylosis. No acute fracture. IMPRESSION: 1. Findings which may be related to mild nonspecific duodenitis. Given proximity, consider laboratory correlation for acute pancreatitis. 2. Findings which may in part be related to pulmonary congestion including small right and trace left pleural effusions. Moderate right and mild left basilar consolidation (atelectasis and/or infiltrate). 3. Other findings as above. Electronically signed by: Tabby Weaver MD 03/29/2019 8:36 PM [employer]
[2019-03-29] MEDS ORDERED: OMEPRAZOLE CAP 20 MG CAP ONE (21:24)
[2019-03-30] MEDS: IPRATROPIUM/ALBUTEROL 3 ML VIAL INH SCH ×5 (04:59→20:41)
[2019-03-30] MEDS: OMEPRAZOLE CAP 20 MG CAP PO SCH (05:58)
[2019-03-30] MEDS: INSULIN LISPRO 100 UNITS/ML PEN SUBCU SCH ×7 (07:17→21:06)
[2019-03-30] MEDS ORDERED: SODIUM CHL 0.9% 50ML MIN-BAG+ 50 ML IVPB ONE ×3 (07:24→20:11)
[2019-03-30] MEDS ORDERED: cefTRIAXone SODIUM 1 GM VIAL ONE (07:24)
[2019-03-30] MEDS: OSELTAMIVIR 75 MG CAP PO SCH ×2 (07:38→20:59)
[2019-03-30] MEDS: cefTRIAXone SODIUM 1 GM in SODIUM CHL 0.9% 50ML MIN-BAG+ 50 ML IVPB SCH (07:39)
--- NOTE | 2019-03-30 07:41 | RAD ---
EXAM DESCRIPTION: XR CHEST 2 VIEWS CLINICAL HISTORY: Pneumonia. Fever. Cough COMPARISON: 03/29/2019 TECHNIQUE: PA/lateral FINDINGS: Normal heart size and mediastinal contour. Hilar peribronchial thickening on the right. Previous CT demonstrated right lower lobe consolidation. This contributes to the increased density in the perihilar region on the frontal radiograph and increased density over the lower thoracic spine and the lateral radiograph. Small effusion. No pneumothorax. No acute bony abnormality IMPRESSION: Right lower lobe pneumonia and perihilar bronchial thickening/bronchitis slight improvement in aeration compared to 03/29/2019 Electronically signed by: Diogenes Ramesh MD 03/30/2019 7:40 AM [facility]
[2019-03-30] MEDS ORDERED: AZITHROMYCIN 250 MG TAB PO SCH (08:30)
[2019-03-30] MEDS ORDERED: SODIUM CHLORIDE 0.9% 500ML 500 ML ONE (09:48)
[2019-03-30] MEDS ORDERED: VANCOMYCIN HCL INJ 1,000 MG VIAL IVPB ONE (09:48)
[2019-03-30] MEDS: VANCOMYCIN HCL INJ 1,750 MG in SODIUM CHLORIDE 0.9% 500ML 500 ML IVPB SCH (09:56)
--- NOTE | 2019-03-30 12:20 | MRI ---
EXAM DESCRIPTION: MRI left foot CLINICAL HISTORY: Partial indentation of the great toe. Previous infection. Nonhealing wound. Assess for underlying osteomyelitis COMPARISON: Radiograph 03/29/2019 TECHNIQUE: Multiplanar, multisequence MR images of the left foot FINDINGS: Previous amputation of the distal phalanx great toe. Cutaneous and subcutaneous defect along the plantar soft tissues contiguous with the distal aspect of the proximal phalanx. Abnormal marrow signal, intermediate T1 in the distal residual metaphysis and diaphysis of the proximal phalanx. Edema on STIR images sparing the proximal epiphysis. Appearance consistent with osteomyelitis. Small metatarsophalangeal joint effusion without strong suspicion of septic arthritis. No soft tissue abscess or septic tenosynovitis. Subcutaneous soft tissue edema and swelling related to cellulitis. Intrinsic muscles of the foot are atrophic and fatty infiltrated IMPRESSION: Large plantar wound along the distal great toe. Osteomyelitis involving the distal aspect of the proximal phalanx Electronically signed by: Diogenes Ramesh MD 03/30/2019 12:18 PM [facility]
[2019-03-30] MEDS: IBUPROFEN 400 MG TAB PO PRN (14:22)
[2019-03-30] MEDS: ASPIRIN (ENTERIC COATED) 81 MG TAB PO SCH (17:14)
[2019-03-30] MEDS: GABAPENTIN 400 MG CAP PO SCH (17:14)
[2019-03-30] MEDS ORDERED: MEROPENEM 1 GM VIAL IVPB ONE ×2 (18:04→20:13)
[2019-03-30] MEDS ORDERED: SODIUM CHLORIDE 0.9% 100ML 100 ML IVPB ONE (18:04)
[2019-03-30] MEDS ORDERED: DAPTOMYCIN 500 MG VIAL IVPB ONE (18:04)
[2019-03-30] MEDS: MEROPENEM 1 GM in SODIUM CHL 0.9% 50ML MIN-BAG+ 50 ML IVPB SCH (18:07)
[2019-03-30] MEDS: cloNIDine PATCH 0.1MG/24HR 0.1 MG PATCH TD SCH (18:13)
[2019-03-30] MEDS: DAPTOMYCIN IVPB SCH (18:59)
[2019-03-30] MEDS: SODIUM CHLORIDE 0.9% IVPB SCH (18:59)
--- NOTE | 2019-03-30 19:32 | PN ---
DATE: 03/30/19 SUPERVISING PHYSICIAN: Reginaldo Meidna M.D. SUBJECTIVE: The patient is lying in bed. She was clarifying any issues with her home medications which have been restarted. She denies any nausea, vomiting, chest pain or shortness of breath. We discussed her MRI and her antibiotic treatments. OBJECTIVE: VITAL SIGNS: Temperature 98.6, heart rate 89, blood pressure 162/72, respiratory rate 20, O2 saturation 95% on room air. RESPIRATORY: Diminished at the bases but otherwise clear to auscultation. CARDIAC: Regular rate and rhythm. GASTROINTESTINAL: Abdomen is soft, nondistended, nontender. Bowel sounds are positive. EXTREMITIES: No cyanosis or clubbing. She does have some edema to the left great toe. It is somewhat warm to touch and tender to palpation. There is an abscess to the left great toe with some redness and edema. There is no drainage. LABORATORY: WBCs 7.3, hemoglobin 10.2, hematocrit 31. Blood sugars have run between 202 and 230. Her preliminary blood cultures show no growth after 24 hours. Lower extremity MRI shows large plantar wound along the distal great toe, osteomyelitis involving the distal aspect of the proximal phalanx. All other labs and films have been reviewed via the EMR. ASSESSMENT: 1. Osteomyelitis of the left great toe with recent treatment for osteomyelitis of the same toe. She failed outpatient treatment. 2. Electrolyte imbalance to include hyperkalemia, likely due to poorly controlled diabetes with a hyperglycemia. 3. Glucose intolerance with hyperglycemia in a type 2 diabetic patient on insulin therapy with no signs of diabetic ketoacidosis. 4. Sepsis with acute bronchitis, concerning for bilateral pneumonia with additional etiology of infectious source being possible osteomyelitis and cellulitis of the left foot with diabetic ulcer, chronic. 5. Acute kidney injury, likely due to dehydration from poorly controlled diabetes. 6. History of seizure disorder. 7. Chronic diabetic neuropathy from poorly controlled diabetes. PLAN: We will continue present supportive care. I spoke with Dr. Vogt, infectious disease physician in [place]. She suggested that due to her renal insufficiency that we change her IV antibiotics from vancomycin to daptomycin and add Merrem. I have discontinued her azithromycin and Rocephin. She will continue on the daptomycin and the Merrem as an inpatient and once discharged, she will continue as an outpatient IV therapy on daptomycin and Invanz. I have ordered lab for in the morning. I have stopped her fluids. I will also talk to Dr. Porras in the morning about consultation about the patient's toe. He has amputated one of her toes previously in the past. I will ask him for consultation. Otherwise, we will continue to monitor the patient closely and follow as needed. #[id number] JF
[2019-03-30] MEDS ORDERED: PHENYTOIN SODIUM CAP EXTENDED 100 MG CAP PO ONE (20:11)
[2019-03-30] MEDS: METOPROLOL TARTRATE 25 MG TAB PO SCH (20:58)
[2019-03-30] MEDS: SERTRALINE HCL 50 MG TAB PO SCH (20:58)
[2019-03-30] MEDS: PHENYTOIN SODIUM CAP (ER DISP) 100 MG CAP PO SCH (21:05)
[2019-03-30] MEDS: HYDROcodone 10MG/APAP 325MG 1 EA TAB PO SCH (23:08)
[2019-03-30] MEDS: CYCLOBENZAPRINE HCL 10 MG TAB PO PRN (23:09)
[2019-03-30] MEDS: ESTAZOLAM 1 MG PO SCH (23:10)
[2019-03-31] MEDS: GABAPENTIN 400 MG CAP PO SCH ×4 (01:27→21:38)
[2019-03-31] MEDS: MEROPENEM 1 GM in SODIUM CHL 0.9% 50ML MIN-BAG+ 50 ML IVPB SCH ×3 (01:28→17:08)
[2019-03-31] MEDS: OMEPRAZOLE CAP 20 MG CAP PO SCH (06:00)
[2019-03-31] MEDS: HYDROcodone 10MG/APAP 325MG 1 EA TAB PO SCH ×3 (06:00→21:39)
[2019-03-31] MEDS: INSULIN LISPRO 100 UNITS/ML PEN SUBCU SCH ×7 (07:34→21:41)
[2019-03-31] MEDS: MELOXICAM 7.5 MG TAB PO SCH (08:01)
[2019-03-31] MEDS: OSELTAMIVIR 75 MG CAP PO SCH ×2 (08:01→21:40)
[2019-03-31] MEDS: METOPROLOL TARTRATE 25 MG TAB PO SCH ×2 (08:02→21:38)
[2019-03-31] MEDS: ASPIRIN (ENTERIC COATED) 81 MG TAB PO SCH (08:02)
[2019-03-31] MEDS: CYCLOBENZAPRINE HCL 10 MG TAB PO PRN ×2 (08:02→21:39)
[2019-03-31] MEDS: PHENYTOIN SODIUM CAP (ER DISP) 100 MG CAP PO SCH ×2 (08:09→21:38)
[2019-03-31] MEDS: IPRATROPIUM/ALBUTEROL 3 ML VIAL INH SCH ×4 (08:11→20:22)
[2019-03-31] MEDS ORDERED: MEROPENEM 1 GM VIAL IVPB ONE ×3 (10:09→20:07)
[2019-03-31] MEDS ORDERED: SODIUM CHL 0.9% 50ML MIN-BAG+ 50 ML IVPB ONE ×3 (10:09→20:07)
--- NOTE | 2019-03-31 11:24 | CONS ---
DATE OF CONSULTATION: 03/31/19 REFERRING PHYSICIAN: Hospital service, LIMA Frausto, and Reginaldo Medina MD. HISTORY OF PRESENT ILLNESS: The patient is a 58-year-old female who was admitted with hyperkalemia. She is status post 6 weeks of vancomycin for osteomyelitis of her left great toe. I have been asked to see her in consultation for the cellulitis and osteomyelitis of the left great toe. In conversation with the hospitalist service, the patient has stated she has no interest in further antibiotic therapy which has been recommended by Dr. Vogt. PAST MEDICAL HISTORY: 1. Poorly controlled diabetes. 2. Seizure disorder. 3. Diabetic neuropathy. PAST SURGICAL HISTORY: 1. Hysterectomy. 2. . 3. Ganglion cyst excision. 4. Heel spur removal. 5. Cholecystectomy. 6. Herniorrhaphy. 7. Left knee surgery. 8. Partial amputation of great toe on the left. 9. Tonsillectomy. MEDICATIONS: 1. Sertraline. 2. Dilantin. 3. Levemir. 4. [place]. 5. Gabapentin. 6. Estazolam. 7. Align. ALLERGIES: NO KNOWN DRUG ALLERGIES. FAMILY HISTORY: Noncontributory. SOCIAL HISTORY: The patient is disabled. She smoked for 30 pack years and quit about a year ago. There is no history of alcohol use or drugs. REVIEW OF SYSTEMS: Noncontributory. PHYSICAL EXAMINATION: VITAL SIGNS: The patient is febrile to 102. She is now afebrile. GENERAL: She is no acute distress and is ambulating. HEENT: Sclerae nonicteric. Mucous membranes moist. NECK: Without adenopathy. BACK: Without CVA tenderness. CHEST: Equal breath sounds bilaterally. HEART: Regular rate and rhythm. ABDOMEN: Benign. EXTREMITIES: On the left lower extremity, the great toe shows some areas of ecchymosis and some areas of erythema. There is a large ulcer at the base of the plantar surface of the tip of the toe. RADIOLOGY: MRI shows some osteomyelitis of the distal tip, but with a normal first tarsal bone. LABORATORY: Coags are normal. Potassium was initially 6.4 and has improved. Liver functions within normal limits. Blood cultures pending. ASSESSMENT: 1. Hyperkalemia, resolving. 2. Diabetes. 3. Question of pneumonia. PLAN: After discussion with the patient and review of the radiology, an amputation of the left great toe will be performed tomorrow, hopefully under ankle block. The patient understands the risks, benefits and alternatives to the procedure including difficulty with healing based on poor control of her blood sugars. [facility][id number] [facility]
[2019-03-31] MEDS: IBUPROFEN 400 MG TAB PO PRN (13:29)
[2019-03-31] MEDS ORDERED: SODIUM CHLORIDE 0.9% 100ML 100 ML IVPB ONE (16:50)
[2019-03-31] MEDS ORDERED: DAPTOMYCIN 500 MG VIAL IVPB ONE (16:51)
[2019-03-31] MEDS: DAPTOMYCIN IVPB SCH (17:35)
[2019-03-31] MEDS: SODIUM CHLORIDE 0.9% IVPB SCH (17:35)
[2019-03-31] MEDS ORDERED: PHENYTOIN SODIUM CAP EXTENDED 100 MG CAP PO ONE (20:04)
[2019-03-31] MEDS: ESTAZOLAM 1 MG PO SCH (21:00)
[2019-03-31] MEDS: SERTRALINE HCL 50 MG TAB PO SCH (21:39)
[2019-03-31] MEDS: cloNIDine PATCH 0.1MG/24HR 0.1 MG PATCH TD SCH (22:08)
[2019-04-01] MEDS: MEROPENEM 1 GM in SODIUM CHL 0.9% 50ML MIN-BAG+ 50 ML IVPB SCH ×3 (02:15→18:04)
[2019-04-01] MEDS: HYDROcodone 10MG/APAP 325MG 1 EA TAB PO SCH ×3 (06:09→21:33)
[2019-04-01] MEDS: OMEPRAZOLE CAP 20 MG CAP PO SCH ×2 (06:09→10:33)
[2019-04-01] MEDS ORDERED: PANTOPRAZOLE SODIUM IV 40 MG VIAL IV ONE (07:12)
[2019-04-01] MEDS: INSULIN LISPRO 100 UNITS/ML PEN SUBCU SCH ×7 (07:34→21:17)
[2019-04-01] MEDS: IPRATROPIUM/ALBUTEROL 3 ML VIAL INH SCH ×4 (09:06→20:29)
--- NOTE | 2019-04-01 09:15 | PN ---
SUPERVISING PHYSICIAN: Reginaldo Medina M.D. DATE: 03/30/19 SUBJECTIVE: The patient is sitting up in bed. She feels somewhat better. We discussed her IV antibiotic therapy both as an inpatient and an outpatient. At this point, she feels like she would rather have her toe amputated than to continue with the long antibiotic therapy courses, so she requested Dr. Porras see her and I have consulted him. OBJECTIVE: VITAL SIGNS: Temperature 97.8. Heart rate 61. Blood pressure 138/68. Respiratory rate 16. O2 saturation 97% on room air. RESPIRATORY: Essentially clear to auscultation bilaterally. CARDIAC: Regular rate and rhythm. GASTROINTESTINAL: Abdomen is soft, nondistended, nontender. Bowel sounds are positive. NEUROLOGIC: She is awake, alert and oriented times 3. LABORATORY: WBCs 4000, hemoglobin 8.7, hematocrit 26.6. Blood sugars have run between 202 and 246. Electrolytes are basically within normal limits. Albumin is low at 2.9. Preliminary blood cultures show no growth after 48 hours. All other labs and films have been reviewed via the EMR. ASSESSMENT: 1. Osteomyelitis of the left great toe with recent treatment for osteomyelitis of the same toe. She failed outpatient treatment. 2. Electrolyte imbalance to include hyperkalemia, likely due to poorly controlled diabetes with a hyperglycemia. 3. Glucose intolerance with hyperglycemia in a type 2 diabetic patient on insulin therapy with no signs of diabetic ketoacidosis. 4. Sepsis with acute bronchitis, concerning for bilateral pneumonia with additional etiology of infectious source being possible osteomyelitis and cellulitis of the left foot with diabetic ulcer, chronic. 5. Acute kidney injury, likely due to dehydration from poorly controlled diabetes. 6. History of seizure disorder. 7. Chronic diabetic neuropathy from poorly controlled diabetes. 8. Iron deficiency anemia. PLAN: We will continue present supportive care. I have consulted Dr. Porras and he has discussed her treatment options with the patient. She has decided for surgical amputation. He will take her to surgery tomorrow, so she will be NPO after midnight. I will check her lab for in the morning. I spoke with Dr. Vogt, infectious disease physician in [place]. Presently, the patient is on daptomycin and Merrem. After discharge, she will need to be on outpatient daptomycin and Invanz. She will need a total of 2 weeks of IV antibiotic therapy upon discharge. Otherwise, we will continue to monitor the patient closely and follow as needed. [facility][id number] [facility]
[2019-04-01] MEDS ORDERED: PHENYTOIN SODIUM CAP EXTENDED 100 MG CAP PO ONE (10:16)
[2019-04-01] MEDS: PHENYTOIN SODIUM CAP EXTENDED 100 MG CAP PO SCH ×2 (10:31→20:30)
[2019-04-01] MEDS: GABAPENTIN 400 MG CAP PO SCH ×3 (10:31→20:31)
[2019-04-01] MEDS: IV SET AND CAP CHANGE INJ INJ SCH (10:32)
[2019-04-01] MEDS: ASPIRIN (ENTERIC COATED) 81 MG TAB PO SCH (10:32)
[2019-04-01] MEDS: OSELTAMIVIR 75 MG CAP PO SCH ×2 (10:32→20:31)
[2019-04-01] MEDS: METOPROLOL TARTRATE 25 MG TAB PO SCH ×2 (10:32→20:31)
[2019-04-01] MEDS: MELOXICAM 7.5 MG TAB PO SCH (10:32)
[2019-04-01] MEDS ORDERED: MEROPENEM 1 GM VIAL IVPB ONE ×3 (11:51→20:24)
[2019-04-01] MEDS ORDERED: SODIUM CHL 0.9% 50ML MIN-BAG+ 50 ML IVPB ONE ×3 (11:51→20:23)
[2019-04-01] MEDS ORDERED: LACTATED RINGERS 1,000 ML ONE (12:07)
[2019-04-01] MEDS: PHENYTOIN SODIUM CAP (ER DISP) 100 MG CAP PO SCH (12:10)
[2019-04-01] MEDS ORDERED: BUPIVACAINE 0.5% 30 ML VIAL INJ ONE ×2 (12:33→13:29)
[2019-04-01] MEDS ORDERED: MIDAZOLAM INJ 2 MG/2 ML VIAL ONE (13:26)
[2019-04-01] MEDS ORDERED: fentaNYL CITRATE INJ 50 MCG/ML AMP ONE (13:26)
[2019-04-01] MEDS ORDERED: LIDOCAINE 1% 10 ML VIAL INJ ONE (13:32)
[2019-04-01] MEDS ORDERED: PROPOFOL 200 MG/20 ML VIAL IV ONE (13:32)
[2019-04-01] MEDS ORDERED: LIDOCAINE 1% 50 ML VIAL INJ ONE (13:34)
[2019-04-01] MEDS ORDERED: DAPTOMYCIN 500 MG VIAL IVPB ONE (17:00)
[2019-04-01] MEDS ORDERED: SODIUM CHLORIDE 0.9% 100ML 100 ML IVPB ONE (17:00)
[2019-04-01] MEDS: DAPTOMYCIN IVPB SCH (17:22)
[2019-04-01] MEDS: SODIUM CHLORIDE 0.9% IVPB SCH (17:22)
[2019-04-01] MEDS: IBUPROFEN 400 MG TAB PO PRN (17:25)
--- NOTE | 2019-04-01 17:39 | OP ---
DATE OF PROCEDURE: 04/01/19 PREOPERATIVE DIAGNOSIS: 1. Persistent osteomyelitis left great toe distal phalange. POSTOPERATIVE DIAGNOSIS: 1. Persistent osteomyelitis left great toe distal phalange. SURGICAL PROCEDURE: 1. Amputation left great toe proximal to the MP joint. SURGEON: Gio Porras M.D. CHOIR ACCOMPANIST: None. ANESTHESIA: Local infiltration with an ankle block and IV sedation by Anesthesia. INDICATION FOR SURGERY: The patient is a 58 year-old female who has been treated for osteomyelitis of her left great toe with 6 weeks of vancomycin. She is readmitted with electrolyte problems and was found to have by MRI persistent osteomyelitis. The patient was offered further IV antibiotic therapy. She wishes to proceed with amputation, however, and she was brought to the Surgical Suite this afternoon for such. FINDINGS AT TIME OF PROCEDURE: The bone proximal to the MP joint seemed to be normal bone without any signs of infectious process. DESCRIPTION OF PROCEDURE: After the ankle block was performed, the patient was placed in the supine position and her left foot was prepped and draped in the usual sterile manner. Then IV sedation was performed. A skin incision was marked with a marking pen which contained the ecchymotic tissue and the ulceration on the base of the toe within the specimen. The skin was incised with a sharp knife and dissection was carried down through the skin and subcutaneous tissue using sharp dissection. The MP joint space was entered sharply and the toe was amputated at this level. Then a rongeur was used to bite back approximately 5 mm of bone, including the capsule. When this was done, the wound was irrigated with saline. Hemostasis was noted to be adequate. There was some oozing which was controlled with electrocautery. When this was done, the wound was closed in layers with the subcutaneous tissue and periosteum closed with interrupted #3-0 Vicryl sutures. The skin edges were approximated with #2-0 Prolene vertical mattress sutures and #3-0 Prolene simple sutures. Sterile dressing was applied. The patient was awakened and taken back to the floor in stable condition. Estimated blood loss was 50 mL. All sponge, needle and instrument counts were correct. [id number] [facility]
[2019-04-01] MEDS: ESTAZOLAM 1 MG PO SCH (20:31)
[2019-04-01] MEDS: SERTRALINE HCL 50 MG TAB PO SCH (20:31)
[2019-04-01] MEDS: CYCLOBENZAPRINE HCL 10 MG TAB PO PRN (20:37)
[2019-04-02] MEDS: MEROPENEM 1 GM in SODIUM CHL 0.9% 50ML MIN-BAG+ 50 ML IVPB SCH ×3 (02:35→17:18)
[2019-04-02] MEDS: CYCLOBENZAPRINE HCL 10 MG TAB PO PRN ×3 (05:02→21:32)
[2019-04-02] MEDS: IBUPROFEN 400 MG TAB PO PRN ×2 (05:02→13:34)
[2019-04-02] MEDS: HYDROcodone 10MG/APAP 325MG 1 EA TAB PO SCH ×3 (05:14→21:31)
[2019-04-02] MEDS: OMEPRAZOLE CAP 20 MG CAP PO SCH (06:15)
[2019-04-02] MEDS: MORPHINE SULFATE INJ 10 MG/ML VIAL IV PRN ×2 (06:29→23:05)
[2019-04-02] MEDS ORDERED: SODIUM CHL 0.9% 50ML MIN-BAG+ 50 ML IVPB ONE ×3 (08:08→19:20)
[2019-04-02] MEDS ORDERED: MEROPENEM 1 GM VIAL IVPB ONE ×3 (08:09→19:21)
[2019-04-02] MEDS: IPRATROPIUM/ALBUTEROL 3 ML VIAL INH SCH ×4 (08:09→20:00)
[2019-04-02] MEDS: INSULIN LISPRO 100 UNITS/ML PEN SUBCU SCH ×7 (08:11→21:06)
[2019-04-02] MEDS: PHENYTOIN SODIUM CAP EXTENDED 100 MG CAP PO SCH ×2 (08:41→20:56)
[2019-04-02] MEDS: MELOXICAM 7.5 MG TAB PO SCH (08:42)
[2019-04-02] MEDS: GABAPENTIN 400 MG CAP PO SCH ×3 (08:42→20:57)
[2019-04-02] MEDS: METOPROLOL TARTRATE 25 MG TAB PO SCH ×2 (08:42→20:56)
[2019-04-02] MEDS: ASPIRIN (ENTERIC COATED) 81 MG TAB PO SCH (08:42)
[2019-04-02] MEDS: OSELTAMIVIR 75 MG CAP PO SCH ×2 (08:42→20:57)
[2019-04-02] MEDS: INSULIN DETEMIR 100 UNITS/ML PEN SUBCU SCH (11:30)
--- NOTE | 2019-04-02 12:06 | PN ---
DATE: 04/01/19 SUPERVISING PHYSICIAN: Blue Medina M.D. SUBJECTIVE: The patient went to surgery today for left toe amputation. She had no complications intraoperatively and was seen in the immediate postoperative state. She has been afebrile. She has had no chest pain complaints. She has had no nausea or vomiting. OBJECTIVE: VITAL SIGNS: Temperature 97.8, pulse 80, blood pressure 139/89, respirations 18, satting 100% on room air. GENERAL: The patient is resting comfortably. Appears to be in no acute distress. CHEST: Lung sounds are clear to auscultation. HEART: Regular rate and rhythm. ABDOMEN: Obese, non-tender. Bowel sounds are positive. NEUROLOGIC: She is alert and oriented times three. LABORATORY: White count 4,400, hemoglobin 10, hematocrit 30.5, platelet count 191,000. Differential shows to be without a left shift. Chemistries show normal electrolytes, BUN 23, creatinine 0.9. Blood sugar ranges between 124 and 244. Calcium 8.9. MICROBIOLOGY: Blood cultures are negative after 3 days. Strep culture showed no beta Strep isolated. RADIOLOGY: No additional radiographic studies today. ASSESSMENT: 1. Osteomyelitis of the left great toe failing outpatient treatment plan status postoperative day #0 for amputation performed by Dr. Porras. 2. Electrolyte imbalance with hyperkalemia due to poorly controlled diabetes showing to be at baseline levels with treatment. 3. Glucose intolerance with hyperglycemia in a type 2 diabetic patient on insulin therapy with no signs of diabetic ketoacidosis. 4. Sepsis with acute bronchitis, concerning for bilateral pneumonia with additional etiology of infectious source being possible osteomyelitis and cellulitis of the left foot with diabetic ulcer, chronic with amputation performed, postoperative day #0. 5. Acute kidney injury due to prerenal azotemia and poorly controlled diabetes back to baseline levels with fluids. 6. History of seizure disorder. 7. Chronic diabetic neuropathy from poorly controlled diabetes. 8. Iron deficiency anemia. PLAN: Will continue with current plan at this point postoperatively status post left great toe amputation. Will continue with antibiotics and defer to Dr. Porras and Dr. Vogt for need for continuation. Until then will continue to monitor and treat as needed. [facility][id number] [facility]
[2019-04-02] MEDS ORDERED: SODIUM CHLORIDE 0.9% 100ML 100 ML IVPB ONE (17:08)
[2019-04-02] MEDS ORDERED: DAPTOMYCIN 500 MG VIAL IVPB ONE (17:09)
[2019-04-02] MEDS: SODIUM CHLORIDE 0.9% IVPB SCH (18:35)
[2019-04-02] MEDS: DAPTOMYCIN IVPB SCH (18:35)
[2019-04-02] MEDS: ESTAZOLAM 1 MG PO SCH (20:56)
[2019-04-02] MEDS: SERTRALINE HCL 50 MG TAB PO SCH (20:57)
--- NOTE | 2019-04-02 22:30 | PN ---
DATE: 04/02/19 SUPERVISING PHYSICIAN: Blue Medina M.D. SUBJECTIVE: The patient had a little issue with pain overnight with the [place] not holding her pain level, therefore we had to start her on a little morphine which she said did work. She has not had any nausea or vomiting. She has had a bowel movement. She has had good appetite. OBJECTIVE: VITAL SIGNS: She is afebrile with temperature 97.7, pulse 61, blood pressure 154/70, respirations 22, satting 98% on room air. I's and O's are showing fairly well balanced. Weight is stable at 100.2 kg. GENERAL: The patient is resting comfortably with her leg elevated. CHEST: Lungs were clear to auscultation. HEART: Regular rate and rhythm. ABDOMEN: Soft, non-tender. Positive bowel sounds. EXTREMITIES: Left extremity has a bandage in place over the foot which shows to be clean and dry. There is no edema noted to bilateral extremities. NEUROLOGIC: She is alert and oriented times three. LABORATORY: White count is 4,800, hemoglobin 9.3, hematocrit 28.9, platelet count 170,000. Differential shows to be without a left shift. Chemistries are showing just a mildly low sodium at 133, otherwise pretty stable with BUN of 18, creatinine 0.84. Blood sugars are fairly elevated up in the 200s ranging from 124 to 244. MICROBIOLOGY: Blood cultures remain negative after 4 days. Group A Strep culture was negative. RADIOLOGY: No additional radiographic studies. ASSESSMENT: 1. Osteomyelitis of the left great toe failing outpatient treatment plan status postoperative day #1 for amputation performed by Dr. Porras. 2. Electrolyte imbalance with hyperkalemia due to poorly controlled diabetes showing to be at baseline levels with treatment. 3. Glucose intolerance with hyperglycemia in a type 2 diabetic patient on insulin therapy with no signs of diabetic ketoacidosis. 4. Sepsis with acute bronchitis, concerning for bilateral pneumonia with additional etiology of infectious source being possible osteomyelitis and cellulitis of the left foot with diabetic ulcer, chronic with amputation performed, postoperative day #0. 5. Acute kidney injury due to prerenal azotemia and poorly controlled diabetes back to baseline levels with fluids. 6. History of seizure disorder. 7. Chronic diabetic neuropathy from poorly controlled diabetes. 8. Iron deficiency anemia. PLAN: Will continue to follow the patient postoperatively with Dr. Porras. I am going to go ahead and start her on some Levemir to see if we can better control her blood sugars. Will again defer further management postoperatively to Dr. Porras in regards to discontinuing antibiotics. She will certainly need resources on discharge probably to include a rolling knee walker so that she can stay off that left leg. Until we can transition to outpatient management will continue to work as needed. #[id number] [facility]
[2019-04-03] MEDS: MEROPENEM 1 GM in SODIUM CHL 0.9% 50ML MIN-BAG+ 50 ML IVPB SCH ×3 (02:04→17:06)
[2019-04-03] MEDS: MORPHINE SULFATE INJ 10 MG/ML VIAL IV PRN ×2 (04:13→14:47)
[2019-04-03] MEDS: OMEPRAZOLE CAP 20 MG CAP PO SCH (06:09)
[2019-04-03] MEDS: HYDROcodone 10MG/APAP 325MG 1 EA TAB PO SCH ×4 (07:03→21:53)
[2019-04-03] MEDS: INSULIN LISPRO 100 UNITS/ML PEN SUBCU SCH ×7 (07:38→21:16)
[2019-04-03] MEDS ORDERED: SODIUM CHL 0.9% 50ML MIN-BAG+ 50 ML IVPB ONE ×3 (07:48→20:19)
[2019-04-03] MEDS ORDERED: MEROPENEM 1 GM VIAL IVPB ONE ×3 (07:49→20:21)
[2019-04-03] MEDS: IPRATROPIUM/ALBUTEROL 3 ML VIAL INH SCH ×4 (08:58→19:52)
[2019-04-03] MEDS: ASPIRIN (ENTERIC COATED) 81 MG TAB PO SCH (09:50)
[2019-04-03] MEDS: PHENYTOIN SODIUM CAP EXTENDED 100 MG CAP PO SCH ×2 (09:50→20:48)
[2019-04-03] MEDS: MELOXICAM 7.5 MG TAB PO SCH (09:50)
[2019-04-03] MEDS: OSELTAMIVIR 75 MG CAP PO SCH ×2 (09:50→20:49)
[2019-04-03] MEDS: METOPROLOL TARTRATE 25 MG TAB PO SCH ×2 (09:51→20:48)
[2019-04-03] MEDS: GABAPENTIN 400 MG CAP PO SCH ×3 (09:51→20:48)
[2019-04-03] MEDS: INSULIN DETEMIR 100 UNITS/ML PEN SUBCU SCH (09:52)
[2019-04-03] MEDS ORDERED: CYCLOBENZAPRINE HCL 5 MG TAB PO PRN (10:30)
[2019-04-03] MEDS ORDERED: DAPTOMYCIN 500 MG VIAL IVPB ONE (16:59)
[2019-04-03] MEDS ORDERED: SODIUM CHLORIDE 0.9% 100ML 100 ML IVPB ONE (16:59)
[2019-04-03] MEDS: DAPTOMYCIN IVPB SCH (17:46)
[2019-04-03] MEDS: SODIUM CHLORIDE 0.9% IVPB SCH (17:46)
[2019-04-03] MEDS: ESTAZOLAM 1 MG PO SCH (20:46)
[2019-04-03] MEDS: SERTRALINE HCL 50 MG TAB PO SCH (20:48)
--- NOTE | 2019-04-03 22:37 | PN ---
DATE: 04/03/19 SUPERVISING PHYSICIAN: Blue Medina M.D. SUBJECTIVE: The patient continues to do well. She has had good pain control so far with her p.o. [place]. She has had just very little IV morphine. She remains on antibiotics. She has been afebrile. She has had no further complaints. OBJECTIVE: VITAL SIGNS: Temperature 98.1, pulse 76, blood pressure 123/57, respirations 16, satting 98% on room air. GENERAL: The patient is resting comfortably in bed. Appears to be in no acute distress. She has her leg elevated. She remains off of it and to the bedside commode at times. CHEST: Remains clear to auscultation. HEART: Regular rate and rhythm. ABDOMEN: Soft, obese, non-tender. Positive bowel sounds. EXTREMITIES: As noted on previous exam, dressing is in place on the left foot with no obvious signs of infection or bleeding. Pulses are weak bilaterally but equal. NEUROLOGIC: She is alert and oriented times three. LABORATORY: Blood sugars are showing between anywhere from 75 to 244. MICROBIOLOGY: Blood cultures are negative after 5 days. RADIOLOGY: No additional radiographic studies. ASSESSMENT: 1. Osteomyelitis of the left great toe failing outpatient treatment plan status postoperative day #2 for amputation performed by Dr. Porras. 2. Electrolyte imbalance with hyperkalemia due to poorly controlled diabetes showing to be at baseline levels with treatment. 3. Glucose intolerance with hyperglycemia in a type 2 diabetic patient on insulin therapy with no signs of diabetic ketoacidosis. 4. Sepsis with acute bronchitis, concerning for bilateral pneumonia with additional etiology of infectious source being possible osteomyelitis and cellulitis of the left foot with diabetic ulcer, chronic with amputation performed, postoperative day #0. 5. Acute kidney injury due to prerenal azotemia and poorly controlled diabetes back to baseline levels with fluids. 6. History of seizure disorder. 7. Chronic diabetic neuropathy from poorly controlled diabetes. 8. Iron deficiency anemia. PLAN: Will continue to follow the patient until discharge. Her blood sugars are still fairly elevated. She continues on Levemir and additional a.c. coverage. She is continuing to be on Daptomycin and Meropenem. Will need to discuss continuation of those medications with Dr. Porras on anticipation of discharging. She did note that she is going to buy a rolling walker that has a seat on it. Will get a PT evaluation tomorrow to help with ambulation efforts. Again, hopefully be able to discharge tomorrow, but will await Dr. Porras's ultimate decision on discharge. Until then will continue to monitor and treat as needed. [facility][id number] [facility]
[2019-04-04] MEDS: SODIUM CHLORIDE 0.9% (FLUSH) 10 ML SYG IV PRN (01:11)
[2019-04-04] MEDS: MEROPENEM 1 GM in SODIUM CHL 0.9% 50ML MIN-BAG+ 50 ML IVPB SCH ×2 (01:13→09:18)
[2019-04-04] MEDS: MORPHINE SULFATE INJ 10 MG/ML VIAL IV PRN (03:19)
[2019-04-04] MEDS: OMEPRAZOLE CAP 20 MG CAP PO SCH (06:09)
[2019-04-04] MEDS: HYDROcodone 10MG/APAP 325MG 1 EA TAB PO SCH ×2 (06:09→13:42)
[2019-04-04] MEDS ORDERED: SODIUM CHL 0.9% 50ML MIN-BAG+ 50 ML IVPB ONE (06:56)
[2019-04-04] MEDS ORDERED: MEROPENEM 1 GM VIAL IVPB ONE (06:56)
[2019-04-04] MEDS: INSULIN LISPRO 100 UNITS/ML PEN SUBCU SCH ×4 (07:00→11:43)
[2019-04-04] MEDS: INSULIN DETEMIR 100 UNITS/ML PEN SUBCU SCH (08:07)
[2019-04-04] MEDS: ASPIRIN (ENTERIC COATED) 81 MG TAB PO SCH (08:09)
[2019-04-04] MEDS: MELOXICAM 7.5 MG TAB PO SCH (08:09)
[2019-04-04] MEDS: METOPROLOL TARTRATE 25 MG TAB PO SCH (08:09)
[2019-04-04] MEDS: PHENYTOIN SODIUM CAP EXTENDED 100 MG CAP PO SCH (08:09)
[2019-04-04] MEDS: OSELTAMIVIR 75 MG CAP PO SCH (08:10)
[2019-04-04] MEDS: GABAPENTIN 400 MG CAP PO SCH ×2 (08:10→14:52)
[2019-04-04] MEDS: IV SET AND CAP CHANGE INJ INJ SCH (08:51)
[2019-04-04] MEDS ORDERED: BIFIDOBACTERIUM INFANTIS 4 MG CAP PO SCH (09:00)
[2019-04-04 09:18] VITALS: TEMP 98
[2019-04-04 14:57] VITALS: BP 172/75; O2SAT 97
--- NOTE | 2019-04-12 10:01 | DS ---
SUPERVISING PHYSICIAN: AMY YBARRA MD ADMISSION DIAGNOSES: 1. Electrolyte imbalance to include hyperkalemia, likely due to poorly controlled diabetes with a hyperglycemia. 2. Glucose intolerance with hyperglycemia in a type 2 diabetic patient on insulin therapy with no signs of diabetic ketoacidosis. 3. Sepsis with acute bronchitis, concerning for bilateral pneumonia with additional etiology of infectious source being possible osteomyelitis and cellulitis of the left foot with diabetic ulcer, chronic. 4. Acute kidney injury, likely due to dehydration from poorly controlled diabetes. 5. History of seizure disorder. 6. Chronic diabetic neuropathy from poorly controlled diabetes. DISCHARGE DIAGNOSES: 1. Osteomyelitis of the left great toe failing outpatient treatment plan status postoperative day #3 for amputation performed by Dr. Porras. 2. Electrolyte imbalance with hyperkalemia due to poorly controlled diabetes showing to be at baseline levels with treatment. 3. Glucose intolerance with hyperglycemia in a type 2 diabetic patient on insulin therapy with no signs of diabetic ketoacidosis. 4. Sepsis with acute bronchitis, concerning for bilateral pneumonia with additional etiology of infectious source being possible osteomyelitis and cellulitis of the left foot with diabetic ulcer, chronic with amputation performed, postoperative day #0. 5. Acute kidney injury due to prerenal azotemia and poorly controlled diabetes back to baseline levels with fluids. 6. History of seizure disorder. 7. Chronic diabetic neuropathy from poorly controlled diabetes. 8. Iron deficiency anemia. REASON FOP HOSPITALIZATION: Ms. Lawson is a 58-year-old female patient that has a history of poorly controlled diabetes and a chronic foot ulcer infection to the left foot. She was brought to the Emergency Department this morning via EMS after she sustained apparently a fall out of her bed, but noted she was overall not feeling well. She does utilize insulin for treatment of her diabetes. She endorses that just prior to arrival, she was trying to grab a pen on her night stand and actually slid out of bed onto the ground, landing on her tailbone. She reportedly was unable to stand even with the assistance of EMS. After further discussion with her, the patient does endorse that she takes quite a bit of pain medicine at night before she goes to bed. She denied any head injuries, loss of consciousness. She does note she has been having some nausea, vomiting, diarrhea with some more diarrhea over the last several days, but denied any fever or chills. She denied significant headache, sore throat. She does note she is having a little bit of productive cough with some yellow sputum and some mild dyspnea on exertion. She notes in regards to her blood sugars she has not been following those as well as she should because she does not have a glucometer that works. She normally takes Novolin prior to each meal on sliding scale, but notes she has not taken any insulin for the last several days since she has not taken her blood sugar levels and she was having some nausea and vomiting. She has been on Levemir in the past, but has recently been changed just to a sliding scale. Initially in the Emergency Room, her laboratory studies showed she had an elevated blood sugar at 420. Sodium was 126, but corrected 132. She did have an elevated creatinine at 1.37. Anion gap and CO2 were both normal. CBC showed normal white count 7,300, some anemia with 10.2 hemoglobin and hematocrit 31.0 with a microcytic/hypochromic presentation. Differential was without a left shift. Urinalysis showed greater than 1000 of glucose, but negative for ketones. There was note of moderate blood with microscopic hematuria with RBCs 10 to 20, no WBCs, just rare bacteria. Rapid strep screen was negative as well as influenza testing by PCR for A and B. She does note that she does have the diabetic ulcer on her left toe, the left plantar aspect of her foot that she normally has been getting wound management through [facility]. She also endorsed that she is supposed to be on 2 antibiotics, one she thinks is Bactrim and the other she is not sure of, which she had not gotten filled. She has in the past been on IV antibiotics and aggressive wound management. Her vital signs on admission showed she was febrile of 102.4, tachycardic at 105, but a normal blood pressure of 129/73. Saturation 94% on nasal cannula at rest. She had multiple imaging studies completed of both knees, pelvis, lumbar spine with no acute injuries found per radiologic interpretation. Her chest x-ray which was a single view chest showed some mild peribronchial thickening which could represent bronchitis. Given her uncontrollable blood sugars and the fact that she had a hyperkalemia initially with a potassium of 6.4, the patient is going to be admitted for treatment of hyperkalemia, hyperglycemia and uncertain etiology of infectious source. She was placed in observation in stable condition. MEDICAL CONSULTATION: Please see Dr. Porras's medical consultation for surgical consultation and details. PROCEDURES: Dr. Dr. Porras's operative note for amputation of left great proximal toe to the MP joint for persistent osteomyelitis of the left great toe, distal phalangeal. LABORATORY STUDIES: White count on admission was 7,300, hemoglobin 10.2, hematocrit 31.0. On discharge hemoglobin and hematocrit were showing to be stable at 10.4 and 32.2 respectively, white count being at 6,300. Differential showed to be without a left shift. Coagulation studies showed normal PT/PTT. On discharge her chemistries were showing normal electrolytes. Blood sugars were ranging between 95 and 241. Urinalysis showed 10 to 20 WBCs, rare bacteria with moderate blood, greater than 1,000 glucose, 100 of protein. Rapid group A strep was negative. MICROBIOLOGY: Blood culture remained negative after 5 days. Group strep A culture was negative. Influenza A and B by PCR was negative. RADIOLOGY: She had multiple x-rays of the chest, knee x-ray, lumbar spine and pelvis x-ray, foot x-ray, abdominal/pelvic CT. Please see all those reports for details. The abdominal/pelvic CT per radiology interpretation showed findings that may indicate duodenitis. Please see that report for details. She had an MRI of the lower extremity and per radiology interpretation showed left plantar wound along the distal great toe, osteomyelitis involving the distal aspect of the proximal phalangeal. HOSPITAL COURSE: Ms. Lawson was admitted initially for concerns for sepsis with bronchitis with question of bilateral pneumonia as well as a diabetic foot ulcer with concerns for osteomyelitis. She was treated aggressively with antibiotics on admission which included azithromycin, Rocephin, vancomycin, meropenem and then daptomycin after consultation with infectious disease specialist, Dr. Vogt. She was continued on treatment, had a surgical consultation for the diabetic ulcer at which time it was decided between Dr. Porras and the patient that the best action for plan of care was amputation of the toe. She was taken to surgery, see Dr. Porras's report for details. She had no complications intraoperatively or postoperatively. She did well. She had a physical therapy evaluation and was found stable enough to continue with outpatient management. PLAN: Ms. Lawson was discharged on 04/04/19 with instructions to followup with Dr. Porras on the Thursday after discharge for removal of stitches. Wound care was instructed as per . She was told to return to the hospital as needed and instructed multiple times not to bear any weight on the foot and to use a walker for activities. She was to shower but no tub bath. Diabetic diet as tolerated. Discharge Medications: 1. Align 4 gm daily, no refills. 2. Bactrim-DS, one tablet twice a day, #20, no refills. All other medications prior to hospitalization were continued. Condition on Discharge: Stable and improved. DISPOSITION: Patient was discharged to home. #[id number] [facility]
== END 2019-04-04 14:35 | disposition home or self-care (01) | DRG 854 ==
LOC: ER 02:57 → OBSVTOIN 06:00 → MS 06:00
PROVIDERS: ADMIT Nurse Practitioner Family; ATTEND Nurse Practitioner Family
PROC: 0Y6Q0Z0 Detachment at Left 1st Toe, Complete, Open Approach (ICD-10-PCS; principal; 2019-03-29)
DX: A41.9 Sepsis, unspecified organism (principal); N17.9 Acute kidney failure, unspecified; M86.672 Other chronic osteomyelitis, left ankle and foot; L03.116 Cellulitis of left lower limb; E11.65 Type 2 diabetes mellitus with hyperglycemia; E87.5 Hyperkalemia; J20.9 Acute bronchitis, unspecified; E11.621 Type 2 diabetes mellitus with foot ulcer; L97.529 Non-pressure chronic ulcer of other part of left foot with unspecified severity; E11.40 Type 2 diabetes mellitus with diabetic neuropathy, unspecified; E86.0 Dehydration; E11.69 Type 2 diabetes mellitus with other specified complication; D50.9 Iron deficiency anemia, unspecified; G40.909 Epilepsy, unspecified, not intractable, without status epilepticus; Z79.4 Long term (current) use of insulin

== ENCOUNTER → 2019-10-10 | Outpatient (CLI) | payer MEDICARE ==
--- NOTE | 2019-10-12 15:57 | MAM ---
EXAM DESCRIPTION: 3D Screening BILATERAL : Digital Mammography. CLINICAL HISTORY: 59 years Female screening . Occasional pain left breast. No personal or family history of breast cancer. Menarche age 6. Childbirth age 17. Menopause age 35. No HRT. Lifetime risk of developing breast cancer (Tyrer-Cuzick model)(%): 7.5. COMPARISON: prior. No prior reports available. TECHNIQUE: Bilateral CC and MLO projection full-field images, with Rigoberto Implant Displacement digital tomosynthesis mammographic technique. Bilateral 2-D digital full-field images, MLO and CC projections, non-displaced. Bilateral digital 2-D full-field MLO images. and CC images. CAD available for 2-D images. . Technically difficult study due to patient physical condition and lack of pectoral muscles on the MLO images. FINDINGS: The breast parenchymal density pattern is: Scattered areas of fibroglandular density. No skin thickening or nipple retraction. Solitary microcalcifications have increased. Vascular calcifications have increased. No new focal, stellate mass or density, focal asymmetry , and no suspicious microcalcifications bilaterally. Taking into account, differences in mammographic technique. IMPRESSION: Benign exam. BIRAD CATEGORY: 2 BENIGN FINDINGS. RECOMMENDATIONS: FOLLOW UP: Routine digital bilateral mammographic screening, one year interval from September 2019. Written communication explaining the IMPRESSION and follow-up, will be mailed to the patient and referring health care provider. According to the [employer], yearly mammograms are recommended starting at age 40 and continuing as long as a woman is in good health. Any breast change noted on a breast self-exam should be reported promptly to the patient's healthcare provider. Breast MRI is recommended for women with an approximately 20-25% or greater lifetime risk of breast cancer, including women with a strong family history of breast or ovarian cancer and women who have been treated for Hodgkin's disease. A negative mammographic report should not delay tissue diagnosis in patients with significant clinical history or physical findings. Extremely dense breast tissue limits the sensitivity of digital mammography. Electronically signed by: Chepe Salmon MD 10/12/2019 3:56 PM CDT
== END ==
LOC: MAMMO 08:30
PROVIDERS: ATTEND Emergency Medicine
DX: Z12.31 Encounter for screening mammogram for malignant neoplasm of breast (principal)

== ENCOUNTER → 2019-11-01 | Outpatient (CLI) | payer MEDICARE ==
--- NOTE | 2019-11-01 07:47 | CT ---
EXAM DESCRIPTION: Head CLINICAL HISTORY: MIGRAINE COMPARISON: None available TECHNIQUE: Non contrast cranial CT with multiplanar reconstructions. FINDINGS: No acute intracranial hemorrhage, transcortical infarct, mass or mass effect. No intra or extra-axial fluid collection. No focal edema or midline shift. Mild bilateral frontoparietal lobes cortical atrophy. No hydrocephalus. The erwin-white matter differentiation is intact. Small superior falx fatty deposits. No displaced calvarial fracture. Mild mucoperiosteal thickening within the bilateral ethmoid and right sphenoid sinuses. Trace right maxillary sinus effusion. The maxillary sinuses are clear. IMPRESSION: 1. No acute intracranial abnormality. 2. Mild bilateral frontoparietal lobes atrophy. 3. Mild paranasal sinus mucoperiosteal thickening. This exam was performed according to our departmental dose-optimization program, which includes automated exposure control, adjustment of the mA and/or kV according to patient size and/or use of iterative reconstruction technique. Electronically signed by: Pelon Oneil DO 11/01/2019 7:46 AM CDT
== END ==
LOC: CT 10:00
PROVIDERS: ATTEND Emergency Medicine
DX: G43.909 Migraine, unspecified, not intractable, without status migrainosus (principal); J34.89 Other specified disorders of nose and nasal sinuses; G31.9 Degenerative disease of nervous system, unspecified

== ENCOUNTER → 2019-11-08 | Outpatient (CLI) | payer MEDICARE | LOC: LAB.O 19:15 | PROVIDERS: ATTEND Nurse Practitioner Family | DX: R06.09 Other forms of dyspnea (principal); I10 Essential (primary) hypertension ==

== ENCOUNTER 2020-03-06 19:36 | Emergency (ER) | payer MEDICARE ==
--- NOTE | 2020-03-06 21:30 | RAD ---
EXAM: Chest,1 View HISTORY: cough COMPARISON: Chest 2 Views AP PA Lateral 03/30/2019 TECHNIQUE: Chest 1 View AP FINDINGS: Trachea midline. Heart size normal. Mild symmetric bilateral lower lungs/chest density may partly represent overlying breast/chest wall attenuation artifact. Mild hazy bilateral mid/lower lung field opacities. No pleural effusion or pneumothorax. Thoracic spine degenerative disease. IMPRESSION: Mild hazy bilateral mid/lower lung field opacities. Causes include pulmonary edema, subsegmental atelectasis, Electronically signed by: Volodymyr Lamb MD 03/06/2020 9:28 PM [employer]
[2020-03-06] MEDS ORDERED: CLINDAMYCIN IV 600MG 600 MG in PREMIX BAG 1 BAG IVPB ONE (22:18)
[2020-03-06] MEDS ORDERED: SODIUM CHLORIDE 0.9% (FLUSH) 10 ML SYG ONE (22:27)
--- NOTE | 2020-03-06 22:30 | ED.PDOC ---
History of Present Illness - General Chief Complaint: Respiratory Problem Stated Complaint: cough and LE wounds Time Seen by Provider: 03/06/20 20:49 Source: patient, RN notes reviewed, Vital Signs reviewed Exam Limitations: no limitations - History of Present Illness Initial Comments: Patient is a 59-year-old female who presents with complaints of shortness of breath, cough, lower extremity edema and ulcers to her lower legs. The cough is been ongoing for few days. Patient is known Covid positive after a Covid test at the local walk-in clinic. Patient complains of cough. She has had no fever or chills at this time. Cough and shortness of breath have worsened over the last 2 days but have been ongoing for 5 to 7 days. Additionally patient complains of lower extremity edema this is been ongoing for weeks. Additionally she has had wounds that she has been doctoring at home that have been getting worse. Pain in her legs is throbbing in nature. It is moderate in intensity. There is no radiation of the pain. It is been ongoing for over 2 weeks. Timing/Duration: constant, getting worse Severity: moderate Improving Factors: nothing Worsening Factors: nothing Associated Symptoms: cough, shortness of breath, weakness, other - LE ulcers Allergies/Adverse Reactions: Allergies Piperacillin [From Zosyn] Allergy (Verified 01/12/20 08:28) Tazobactam [From Zosyn] Allergy (Verified 01/12/20 08:28) Home Medications: Ambulatory Orders Estazolam 1 mg PO BEDTIME 01/06/17 HYDROcodone 10MG/APAP 325MG 1 tablet PO Q8HR 01/06/17 Sertraline HCl 100 mg PO BEDTIME 01/06/17 Gabapentin 800 mg PO TID 05/01/17 Aspirin [Aspirin Adult Low Dose] 81 mg PO DAILY 03/30/19 Clonidine [[id number]-6] 0.1 mg PO TID 03/30/19 Cyclobenzaprine HCl [Flexeril] 10 mg PO Q8HR PRN 03/30/19 Meloxicam 7.5 mg PO DAILY 03/30/19 Metoprolol Succinate [Metoprolol Succinate ER] 25 mg PO BID 03/30/19 Phenytoin Sodium Extended 300 mg PO BID 03/30/19 Bifidobacterium Infantis [Align] 4 mg PO DAILY cap 04/04/19 Sulfa/Trimeth 800/160 (Ds) Tab [Bactrim DS] 1 tablet PO BID #20 tab 04/04/19 Clindamycin HCl 300 mg PO QID #40 cap 03/06/20 Sulfamethoxazole-Trimethoprim [Bactrim Ds 800-160 mg] 1 tab PO BID #10 tab 03/06/20 Review of Systems - Review of Systems Constitutional: States: see HPI, weakness. Denies: chills, fever, malaise EENTM: States: no symptoms reported. Denies: eye pain, blurred vision, double vision Respiratory: States: see HPI, cough, short of breath. Denies: wheezing Cardiology: States: no symptoms reported. Denies: chest pain, palpitations, syncope Gastrointestinal/Abdominal: States: no symptoms reported. Denies: abdominal pain, diarrhea, nausea, vomiting Genitourinary: States: no symptoms reported. Denies: dysuria, frequency Musculoskeletal: States: see HPI. Denies: no symptoms reported, back pain, neck pain Skin: States: see HPI, lesions - bilateral LE. Neurological: States: see HPI, weakness. Denies: tingling, tremors Endocrine: States: no symptoms reported. Denies: increased hunger, increased thirst, increased urine Hematologic/Lymphatic: States: no symptoms reported. Denies: blood clots, easy bleeding All other Systems: Reviewed and Negative Past Medical History (General) - Patient Medical History Hx Seizures: Yes - dilantin Hx Stroke: No Hx Asthma: No Hx Cardiac Disorders: No Hx Congestive Heart Failure: No Hx Pacemaker: No Hx Hypertension: Yes Hx Diabetes: Yes - 2000 Hx MRSA: No - Vaccination History Hx Influenza Vaccination: Yes Hx Pneumococcal Vaccination: Yes - Social History Hx Tobacco Use: No - quit 2011 Hx Alcohol Use: No Hx Substance Use: No Hx Depression: Yes Hx Physical Abuse: No Hx Emotional Abuse: No - Female History Patient : No Family Medical History - Family History Mother Hx Family Congestive Heart Failure: Yes Hx Family;Other: COPD Physical Exam - Physical Exam General Appearance: Alert, Anxious, Well Developed, Well Hydrated, Well Nourished, Other - mild distress Eye Exam: bilateral normal Ears, Nose, Throat: hearing grossly normal, normal ENT inspection, normal pharynx Neck: non-tender, full range of motion, supple Respiratory: chest non-tender, no respiratory distress, no accessory muscle use, rhonchi - diffusely throughout Cardiovascular/Chest: normal peripheral pulses, regular rate, rhythm, no edema, no gallop, no JVD, no murmur Peripheral Pulses: radial,right: 2+, radial,left: 2+ Gastrointestinal/Abdominal: normal bowel sounds, non tender, soft, distended - morbidly obese Back Exam: normal inspection, no CVA tenderness, no vertebral tenderness Extremity: normal range of motion, pedal edema, swelling, other - LE ulcers bilaterally, weeping. 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 03/06/20 23:51 Patient is much improved after IV fluids. Labs are relatively unremarkable except for her urinalysis showing a significant UTI. There is no white count or left shift. Patient has tolerated the IV antibiotics. Plan on discharge home on Augmentin x5 days for her UTI and clindamycin x10 days for cellulitis. Patient to follow-up with PCP in 3 to 4 days. I discussed this plan of care with the patient she voices understanding and agreement. Patient will return sooner if her legs worsen or she has worsening symptoms. Van Ruffin M.D. #[id number] - Results/Orders Results/Orders: 03/06/20 20:49 Isolation:Airborne ONCE EKG Assessment ONCE 03/06/20 21:00 EKG STAT Pulse Ox, Continuous Monitoring STAT 03/06/20 22:45 BLOOD CULTURE Stat 03/06/20 22:48 URINE CULTURE W/COLONY COUNT Stat 03/07/20 21:00 Pulse Ox, Continuous Monitoring STAT 03/08/20 21:00 Pulse Ox, Continuous Monitoring STAT Laboratory Results - last 24 hr 03/06/20 03/06/20 03/06/20 21:11 21:11 21:11 WBC 6.4 RBC 3.38 L Hgb 9.4 L Hct 27.5 L MCV 81.3 MCH 27.7 MCHC 34.1 RDW 13.5 Plt Count 177 MPV 9.3 Absolute Neuts (auto) 4.30 Absolute Lymphs (auto) 1.40 Absolute Monos (auto) 0.50 Absolute Eos (auto) 0.20 Absolute Basos (auto) 0.00 Neutrophils % 67.4 Lymphocytes % 21.0 Monocytes % 7.5 Eosinophils % 3.5 Basophils % 0.6 PTT (SP) 29.1 D-Dimer, Quantitative 642.0 H* Sodium 133 L Potassium 5.5 H Chloride 102 Carbon Dioxide 22 Anion Gap 14.5 BUN 50 H Creatinine 1.22 BUN/Creatinine Ratio 41.0 H Random Glucose 213 H Serum Osmolality 286.1 Calcium 8.4 Magnesium 1.8 Total Bilirubin 0.2 AST 18 ALT 18 Alkaline Phosphatase 93 LD Total 187 H Creatine Kinase 145 H Troponin I C-Reactive Protein 6.2 H B-Natriuretic Peptide 207.0 H* Serum Total Protein 6.7 Albumin 2.7 L Globulin 4.0 H Albumin/Globulin Ratio 0.7 L Urine Color Urine Appearance Urine pH Ur Specific [place] Urine Protein Urine Glucose (UA) Urine Ketones Urine Blood Urine Nitrite Urine Bilirubin Urine Urobilinogen Ur Leukocyte Esterase Urine RBC Urine WBC Ur Epithelial Cells Urine Bacteria Urine Yeast 03/06/20 03/06/20 21:11 22:48 WBC RBC Hgb Hct MCV MCH MCHC RDW Plt Count MPV Absolute Neuts (auto) Absolute Lymphs (auto) Absolute Monos (auto) Absolute Eos (auto) Absolute Basos (auto) Neutrophils % Lymphocytes % Monocytes % Eosinophils % Basophils % PTT (SP) D-Dimer, Quantitative Sodium Potassium Chloride Carbon Dioxide Anion Gap BUN Creatinine BUN/Creatinine Ratio Random Glucose Serum Osmolality Calcium Magnesium Total Bilirubin AST ALT Alkaline Phosphatase LD Total Creatine Kinase Troponin I 0.02 C-Reactive Protein B-Natriuretic Peptide Serum Total Protein Albumin Globulin Albumin/Globulin Ratio Urine Color Yellow Urine Appearance Cloudy Urine pH 5.5 Ur Specific [place] 1.020 Urine Protein 100 H Urine Glucose (UA) 100 H Urine Ketones Negative Urine Blood Moderate H Urine Nitrite Positive H Urine Bilirubin Negative Urine Urobilinogen 0.2 Ur Leukocyte Esterase Moderate H Urine RBC 5-10 H Urine WBC >50 H Ur Epithelial Cells 0 Urine Bacteria 4+ H Urine Yeast Rare EXAM: Chest,1 View HISTORY: cough COMPARISON: Chest 2 Views AP PA Lateral 03/30/2019 TECHNIQUE: Chest 1 View AP FINDINGS: Trachea midline. Heart size normal. Mild symmetric bilateral lower lungs/chest density may partly represent overlying breast/chest wall attenuation artifact. Mild hazy bilateral mid/lower lung field opacities. No pleural effusion or pneumothorax. Thoracic spine degenerative disease. IMPRESSION: Mild hazy bilateral mid/lower lung field opacities. Causes include pulmonary edema, subsegmental atelectasis, scar/fibrosis, and atypical infection (including viral & COVID). Electronically signed by: Volodymyr Lamb MD 03/06/2020 9:28 PM Departure - Departure Clinical Impression: COVID-19, Bilateral lower leg cellulitis UTI (urinary tract infection) Qualifiers: Urinary tract infection type: acute cystitis Hematuria presence: without hematuria Qualified Code(s): N30.00 - Acute cystitis without hematuria Time of Disposition: 23:54 Disposition: Discharge to Home or Self Care Condition: Good Departure Forms: ED Discharge - Pt. Copy, Patient Portal Self Enrollment Instructions: Coronavirus Disease 2019 (COVID-19), Cellulitis (Skin Infection), Adult (DC), Urinary Tract Infection, Adult (DC) Diet: resume usual diet Activity: increase activity as tolerated, no pushing/pulling with affected limb Referrals: BRONWYN SOSA [Primary Care Provider] - 1-5 Days Prescriptions: Sulfamethoxazole-Trimethoprim [Bactrim Ds 800-160 mg] 1 tab PO BID #10 tab Clindamycin HCl 300 mg PO QID #40 cap Home Medications: Ambulatory Orders Estazolam 1 mg PO BEDTIME 01/06/17 HYDROcodone 10MG/APAP 325MG 1 tablet PO Q8HR 01/06/17 Sertraline HCl 100 mg PO BEDTIME 01/06/17 Gabapentin 800 mg PO TID 05/01/17 Aspirin [Aspirin Adult Low Dose] 81 mg PO DAILY 03/30/19 Clonidine [[id number]-Xuw-1] 0.1 mg PO TID 03/30/19 Cyclobenzaprine HCl [Flexeril] 10 mg PO Q8HR PRN 03/30/19 Meloxicam 7.5 mg PO DAILY 03/30/19 Metoprolol Succinate [Metoprolol Succinate ER] 25 mg PO BID 03/30/19 Phenytoin Sodium Extended 300 mg PO BID 03/30/19 Bifidobacterium Infantis [Align] 4 mg PO DAILY cap 04/04/19 Sulfa/Trimeth 800/160 (Ds) Tab [Bactrim DS] 1 tablet PO BID #20 tab 04/04/19 Clindamycin HCl 300 mg PO QID #40 cap 03/06/20 Sulfamethoxazole-Trimethoprim [Bactrim Ds 800-160 mg] 1 tab PO BID #10 tab 11/24/20
[2020-03-07] MEDS ORDERED: CIPROFLOXACIN 500 MG TAB ONE (00:10)
[2020-03-07] MEDS ORDERED: CIPROFLOXACIN 500 MG TAB PO ONE (00:19)
[2020-03-07 00:34] VITALS: BP 152/75; TEMP 97.8; O2SAT 99
== END 2020-03-07 00:15 | disposition home or self-care (01) ==
LOC: ER 19:36
DX: U07.1 COVID-19 (principal); L03.116 Cellulitis of left lower limb; L03.115 Cellulitis of right lower limb; N30.00 Acute cystitis without hematuria; E11.9 Type 2 diabetes mellitus without complications; I10 Essential (primary) hypertension; F32.9 Major depressive disorder, single episode, unspecified; R56.9 Unspecified convulsions; Z87.891 Personal history of nicotine dependence; Z79.899 Other long term (current) drug therapy; Z79.82 Long term (current) use of aspirin; Z88.1 Allergy status to other antibiotic agents
CPT/HCPCS: 36415; 71045; 80053; 81001; 82550; 83615; 83735; 83880; 84484; 85025; 85379; 85730; 86140; 87040; 87086; 87088; 87186; A4216; J3490

== ENCOUNTER → 2020-05-14 | Outpatient (CLI) | payer MEDICARE ==
--- NOTE | 2020-05-15 07:55 | US ---
EXAM DESCRIPTION: Venous,Lower Extremity RT CLINICAL HISTORY: THROMBOSIS LOWER EXTREMITY, palpable mass right calf COMPARISON: May 05, 2017 TECHNIQUE: Right lower extremity duplex venous Doppler evaluation. Grayscale, color Doppler and spectral analysis performed. FINDINGS: On the right, duplex venous Doppler evaluation from the inguinal ligament at the common femoral vein was continued distally into the upper leg. Normal flow and augmentation and compressibility is present. No evidence of obstruction or thrombosis or filling defect identified. The superficial femoral vein, common femoral vein, popliteal vein, as well as peroneal and posterior tibial veins are patent with normal flow and augmentation. In the right calf anteriorly and medially in an area of palpable abnormality is a mixed hypoechoic and avascular lobulated subcutaneous mass that measures 5.6 x 1.5 x 2.1 cm. A localized subcutaneous hematoma suspected. This lies superficial to the myocutaneous fascial plane. No vascular flow or color Doppler flow is identified within the mass consistent with an acute or subacute hematoma. IMPRESSION: 1. Negative right lower extremity DVT sonography for deep venous thrombosis. 2. Irregular avascular mixed predominantly hypoechoic and partially cystic subcutaneous irregular mass described above consistent with a subcutaneous hematoma in the area of palpable concern in the right anterior calf. Electronically signed by: Diogenes Maurice MD 05/15/2020 7:53 AM [employer]
== END ==
LOC: US 13:11
PROVIDERS: ATTEND Emergency Medicine
DX: R22.41 Localized swelling, mass and lump, right lower limb (principal)